=== PATIENT | female | born 1955 | race African-American/Black ===

== ENCOUNTER 2022-05-11 09:08 | Day surgery (SDC) | payer OTHER ==
[2022-05-11] MEDS ORDERED: SODIUM CHLORIDE 250 ML IV ONE (10:00)
[2022-05-11 10:04] LABS: BASO % 0.8 % (0-2.0); EOS % 6.5 % (0-4.5); HEMATOCRIT 41.5 % (32.4-45.2); HEMOGLOBIN 13.3 GM/dL (10.7-15.3); LYMPH % 23.9 % (8-40); MCH 27.3 pg (25.7-33.7); MCHC 32.1 g/dl (32.0-36.0); MEAN CELL VOLUME 85.2 fl (80-96); MONO % 9.1 % (3.8-10.2); NEUT % 59.7 % (42.8-82.8); PLATELET COUNT 251 10^3/uL (134-434); RBC 4.87 M/mm3 (3.60-5.2); RDW 13.8 % (11.6-15.6); WHITE BLOOD COUNT 7.3 K/mm3 (4.0-10.0)
[2022-05-11] MEDS ORDERED: PALONOSETRON HCL 0.25 MG/5 ML VIAL IVPUSH ONE (10:30)
[2022-05-11] MEDS ORDERED: FOSAPREPITANT DIMEGLUMINE 150 MG in SODIUM CHLORIDE 145 ML IVPB ONE (10:30)
[2022-05-11 10:34] LABS: ALBUMIN 3.3 g/dl (3.4-5.0); CALCIUM 9.8 mg/dL (8.5-10.1)
[2022-05-11 10:35] LABS: BLOOD UREA NITROGEN 14.2 mg/dL (7-18)
[2022-05-11 10:37] LABS: BILIRUBIN,DIRECT 0.1 mg/dL (0.0-0.2)
[2022-05-11 10:39] LABS: BILIRUBIN,TOTAL 0.2 mg/dL (0.2-1); TOT PROT 7.2 g/dl (6.4-8.2)
[2022-05-11 10:40] LABS: N-TERMINAL BNP 32.3 pg/ml (5-125)
[2022-05-11] MEDS ORDERED: PEMBROLIZUMAB 200 MG in SODIUM CHLORIDE 100 ML IV ONE (11:00)
[2022-05-11] MEDS ORDERED: SODIUM CHLORIDE IVPB ONE ×2 (11:30→11:45)
[2022-05-11] MEDS ORDERED: PEMETREXED DISODIUM IVPB ONE (11:30)
[2022-05-11] MEDS ORDERED: CARBOPLATIN IVPB ONE (11:45)
[2022-05-11] MEDS ORDERED: MAGNESIUM SULF 50% (8.12 MEQ/2 ML-1 GM VIAL) ONE (11:46)
[2022-05-11 17:02] VITALS: BP 134/71; PULSE 71; RESP 18; TEMP 98.2
[2022-05-11] MEDS ORDERED: PORTA CATH FLUSH 10 ML IVPUSH PRN (17:02)
== END 2022-05-11 14:30 | disposition home or self-care (01) ==
LOC: JONCCHEMO 09:08
PROVIDERS: ATTEND Internal Medicine Hematology & Oncology
DX: Z51.11 Encounter for antineoplastic chemotherapy (principal); C34.90 Malignant neoplasm of unspecified part of unspecified bronchus or lung
CPT/HCPCS: 36415; 80048; 80076; 82150; 82533; 82550; 83690; 83880; 84439; 84443; 84484; 85025; 87086; 96367; 96375; 96411; 96413; 96417; J1453; J2469; J9271; J9305

== ENCOUNTER 2022-06-01 08:38 | Day surgery (SDC) | payer OTHER ==
[2022-06-01 09:15] LABS: URINE APPEARANCE CLEAR; URINE BILIRUBIN NEGATIVE (NEGATIVE); URINE COLOR YELLOW; URINE GLUCOSE (UA) NEGATIVE (NEGATIVE); URINE KETONE TRACE (NEGATIVE); URINE LEUK ESTERASE NEGATIVE (NEGATIVE); URINE NITRITE NEGATIVE (NEGATIVE); URINE PROTEIN NEGATIVE (NEGATIVE); URINE UROBILINOGEN 0.2 mg/dL (0.2-1.0)
[2022-06-01 09:19] LABS: BASO % 0.6 % (0-2.0); HEMATOCRIT 38.9 % (32.4-45.2); MCHC 33.4 g/dl (32.0-36.0); MEAN PLT VOLUME 7.4 fl (7.5-11.1); MONO % 16.2 % (3.8-10.2); NEUT % 47.2 % (42.8-82.8); PLATELET COUNT 457 10^3/uL (134-434); RBC 4.63 M/mm3 (3.60-5.2); RDW 13.7 % (11.6-15.6); WHITE BLOOD COUNT 5.5 K/mm3 (4.0-10.0)
[2022-06-01 09:44] LABS: BLOOD UREA NITROGEN 14.3 mg/dL (7-18); CALCIUM 10.2 mg/dL (8.5-10.1)
[2022-06-01 09:45] LABS: ALBUMIN 3.5 g/dl (3.4-5.0)
[2022-06-01 09:47] LABS: BILIRUBIN,DIRECT 0.1 mg/dL (0.0-0.2); CREATININE 1.1 mg/dL (0.55-1.3)
[2022-06-01 09:48] LABS: BILIRUBIN,TOTAL 0.2 mg/dL (0.2-1)
[2022-06-01 09:49] LABS: TOT PROT 7.8 g/dl (6.4-8.2)
[2022-06-01 09:50] LABS: N-TERMINAL BNP 13.7 pg/ml (5-125)
[2022-06-01] MEDS ORDERED: FOSAPREPITANT DIMEGLUMINE 150 MG in SODIUM CHLORIDE 145 ML IVPB ONE (10:00)
[2022-06-01] MEDS ORDERED: PALONOSETRON HCL 0.25 MG/5 ML VIAL IVPUSH ONE (10:00)
[2022-06-01] MEDS ORDERED: SODIUM CHLORIDE 250 ML IV ONE (10:00)
[2022-06-01] MEDS ORDERED: PEMBROLIZUMAB 200 MG in SODIUM CHLORIDE 100 ML IV ONE (10:30)
[2022-06-01] MEDS ORDERED: PEMETREXED DISODIUM IVPB ONE (11:00)
[2022-06-01] MEDS ORDERED: SODIUM CHLORIDE IVPB ONE ×2 (11:00→11:30)
[2022-06-01] MEDS ORDERED: CARBOPLATIN IVPB ONE (11:30)
[2022-06-01] MEDS ORDERED: PORTA CATH FLUSH 10 ML IVPUSH PRN (15:23)
[2022-06-01 15:24] VITALS: BP 134/83; PULSE 96; RESP 18; TEMP 98
== END 2022-06-01 15:00 | disposition home or self-care (01) ==
LOC: JONCCHEMO 08:38
PROVIDERS: ATTEND Internal Medicine Hematology & Oncology
DX: Z51.11 Encounter for antineoplastic chemotherapy (principal); C34.90 Malignant neoplasm of unspecified part of unspecified bronchus or lung
CPT/HCPCS: 36415; 80048; 80076; 81003; 82150; 82533; 82550; 83690; 83880; 84439; 84443; 84484; 85025; 96367; 96375; 96411; 96413; 96417; J1453; J2469; J9271; J9305

== ENCOUNTER 2022-06-22 08:45 | Day surgery (SDC) | payer OTHER ==
[2022-06-22 09:26] LABS: BASO % 0.3 % (0-2.0); EOS % 1.1 % (0-4.5); HEMATOCRIT 34.3 % (32.4-45.2); HEMOGLOBIN 11.4 GM/dL (10.7-15.3); LYMPH % 31.1 % (8-40); MCHC 33.1 g/dl (32.0-36.0); MEAN CELL VOLUME 84.7 fl (80-96); MEAN PLT VOLUME 7.4 fl (7.5-11.1); MONO % 16.3 % (3.8-10.2); NEUT % 51.2 % (42.8-82.8); PLATELET COUNT 267 10^3/uL (134-434); RBC 4.05 M/mm3 (3.60-5.2); RDW 14.5 % (11.6-15.6); WHITE BLOOD COUNT 5.3 K/mm3 (4.0-10.0)
[2022-06-22 09:28] LABS: EPI CELLS 25 /uL (0-25.1); HYALINE CASTS 1 /uL (0-3.1); PH,URINE 5.5 (5.0-8.0); URINE APPEARANCE CLEAR; URINE BACTERIA 269 /uL (0-1359); URINE BILIRUBIN NEGATIVE (NEGATIVE); URINE COLOR YELLOW; URINE GLUCOSE (UA) NEGATIVE (NEGATIVE); URINE KETONE TRACE (NEGATIVE); URINE LEUK ESTERASE 1+ (NEGATIVE); URINE NITRITE NEGATIVE (NEGATIVE); URINE PROTEIN NEGATIVE (NEGATIVE); URINE RBC 12 /uL (0-23.9); URINE UROBILINOGEN 0.2 mg/dL (0.2-1.0); URINE WBC 38 /uL (0-25.8)
[2022-06-22 09:46] LABS: POTASSIUM 4.6 mmol/L (3.5-5.1)
[2022-06-22 09:49] LABS: ALBUMIN 3.7 g/dl (3.4-5.0); BLOOD UREA NITROGEN 19.1 mg/dL (7-18); CALCIUM 9.5 mg/dL (8.5-10.1)
[2022-06-22 09:51] LABS: BILIRUBIN,DIRECT 0.1 mg/dL (0.0-0.2)
[2022-06-22 09:52] LABS: CREATININE 1.1 mg/dL (0.55-1.3)
[2022-06-22 09:53] LABS: BILIRUBIN,TOTAL 0.2 mg/dL (0.2-1); TOT PROT 7.8 g/dl (6.4-8.2)
[2022-06-22] MEDS ORDERED: SODIUM CHLORIDE 250 ML IV ONE (10:00)
[2022-06-22] MEDS ORDERED: FOSAPREPITANT DIMEGLUMINE 150 MG in SODIUM CHLORIDE 145 ML IVPB ONE (10:00)
[2022-06-22] MEDS ORDERED: PALONOSETRON HCL 0.25 MG/5 ML VIAL IVPUSH ONE (10:00)
[2022-06-22] MEDS ORDERED: PEMBROLIZUMAB 200 MG in SODIUM CHLORIDE 100 ML IV ONE (10:30)
[2022-06-22] MEDS ORDERED: SODIUM CHLORIDE IVPB ONE ×2 (11:00→11:30)
[2022-06-22] MEDS ORDERED: PEMETREXED DISODIUM IVPB ONE (11:00)
[2022-06-22] MEDS ORDERED: CARBOPLATIN IVPB ONE (11:30)
[2022-06-22 17:14] VITALS: BP 129/74; PULSE 74; RESP 20; TEMP 98.4
[2022-06-22] MEDS ORDERED: PORTA CATH FLUSH 10 ML IVPUSH PRN (17:14)
== END 2022-06-22 14:10 | disposition home or self-care (01) ==
LOC: J7W 08:45 → JONCCHEMO 08:45
PROVIDERS: ATTEND Internal Medicine Hematology & Oncology
DX: Z12.11 Encounter for screening for malignant neoplasm of colon (principal)
CPT/HCPCS: 36415; 80048; 80076; 81003; 82150; 82533; 82550; 83690; 83880; 84439; 84443; 84484; 85025; 96375; 96411; 96413; 96417; J1453; J2469; J9271; J9305

== ENCOUNTER 2022-07-13 10:19 | Day surgery (SDC) | payer OTHER ==
[~2022-07-13 10:19] MED LIST: CYANOCOBALAMIN (VITAMIN B-12) 1000 MCG/1 ML VIAL IM ONE; FOSAPREPITANT DIMEGLUMINE 150 MG in SODIUM CHLORIDE 145 ML IVPB ONE; PALONOSETRON HCL 0.25 MG/5 ML VIAL IVPUSH ONE; SODIUM CHLORIDE 250 ML IV ONE
[2022-07-13] MEDS ORDERED: PEMBROLIZUMAB 200 MG in SODIUM CHLORIDE 100 ML IV ONE (10:30)
[2022-07-13] MEDS ORDERED: SODIUM CHLORIDE IVPB ONE (11:00)
[2022-07-13] MEDS ORDERED: PEMETREXED DISODIUM IVPB ONE (11:00)
[2022-07-13 11:38] LABS: BASO % 0.3 % (0-2.0); EOS % 0.8 % (0-4.5); HEMATOCRIT 31.7 % (32.4-45.2); HEMOGLOBIN 10.5 GM/dL (10.7-15.3); LYMPH % 35.8 % (8-40); MCH 28.7 pg (25.7-33.7); MEAN PLT VOLUME 7.6 fl (7.5-11.1); MONO % 14.6 % (3.8-10.2); NEUT % 48.5 % (42.8-82.8); PLATELET COUNT 281 10^3/uL (134-434); RBC 3.65 M/mm3 (3.60-5.2); RDW 16.8 % (11.6-15.6); WHITE BLOOD COUNT 5.6 K/mm3 (4.0-10.0)
[2022-07-13 12:06] LABS: POTASSIUM 4.2 mmol/L (3.5-5.1)
[2022-07-13 12:09] LABS: BLOOD UREA NITROGEN 18.2 mg/dL (7-18); CALCIUM 9.5 mg/dL (8.5-10.1)
[2022-07-13 12:10] LABS: ALBUMIN 3.7 g/dl (3.4-5.0)
[2022-07-13 12:12] LABS: BILIRUBIN,DIRECT 0.1 mg/dL (0.0-0.2)
[2022-07-13 12:14] LABS: BILIRUBIN,TOTAL 0.1 mg/dL (0.2-1)
[2022-07-13 12:15] LABS: N-TERMINAL BNP 42.2 pg/ml (5-125)
[2022-07-13 14:17] LABS: EPI CELLS 13 /uL (0-25.1); HYALINE CASTS 2 /uL (0-3.1); PH,URINE 5.5 (5.0-8.0); URINE APPEARANCE CLEAR; URINE BACTERIA 384 /uL (0-1359); URINE BILIRUBIN NEGATIVE (NEGATIVE); URINE COLOR YELLOW; URINE GLUCOSE (UA) NEGATIVE (NEGATIVE); URINE KETONE TRACE (NEGATIVE); URINE LEUK ESTERASE 1+ (NEGATIVE); URINE NITRITE NEGATIVE (NEGATIVE); URINE PROTEIN NEGATIVE (NEGATIVE); URINE RBC 7 /uL (0-23.9); URINE UROBILINOGEN 0.2 mg/dL (0.2-1.0); URINE WBC 25 /uL (0-25.8)
[2022-07-13 15:00] LABS: YEAST OCCASIONAL (NEGATIVE)
[2022-07-13 15:17] VITALS: BP 135/74; PULSE 84; RESP 20; TEMP 97.8
[2022-07-13] MEDS ORDERED: PORTA CATH FLUSH 10 ML IVPUSH PRN (15:17)
== END 2022-07-13 14:20 | disposition home or self-care (01) ==
LOC: JONCCHEMO 10:19 → J7W 11:25 → JONCCHEMO 14:20
PROVIDERS: ATTEND Internal Medicine Hematology & Oncology
DX: Z51.11 Encounter for antineoplastic chemotherapy (principal); C34.12 Malignant neoplasm of upper lobe, left bronchus or lung
CPT/HCPCS: 36415; 80048; 80076; 81003; 82150; 82533; 82550; 83690; 83880; 84439; 84443; 84484; 85025; 96367; 96413; 96417; J1453; J2469; J9271; J9305

== ENCOUNTER 2022-07-20 12:49 | Inpatient (IN) | payer OTHER ==
[2022-07-20 13:03] VITALS: BMI 39.4
[2022-07-20 15:31] LABS: HEMATOCRIT 27.3 % (32.4-45.2); HEMOGLOBIN 8.9 GM/dL (10.7-15.3); INR 1.24 (0.83-1.09); MCH 28.9 pg (25.7-33.7); MCHC 32.5 g/dl (32.0-36.0); MEAN CELL VOLUME 89.1 fl (80-96); MEAN PLT VOLUME 7.7 fl (7.5-11.1); PLATELET COUNT 173 10^3/uL (134-434); PROTHROMBIN TIME (PATIENT) 14.4 SEC (9.7-13.0); RBC 3.06 M/mm3 (3.60-5.2); RDW 19.9 % (11.6-15.6); WHITE BLOOD COUNT 2.5 K/mm3 (4.0-10.0)
[2022-07-20 15:46] LABS: POTASSIUM 3.9 mmol/L (3.5-5.1)
[2022-07-20 15:50] LABS: BLOOD UREA NITROGEN 15.5 mg/dL (7-18); CALCIUM 8.8 mg/dL (8.5-10.1)
[2022-07-20 15:54] LABS: ANISOCYTOSIS 1+; MACROCYTOSIS 1+
[2022-07-20 15:55] LABS: BILIRUBIN,TOTAL 0.7 mg/dL (0.2-1); TOT PROT 6.8 g/dl (6.4-8.2)
[2022-07-20 15:58] LABS: N-TERMINAL BNP 59.4 pg/ml (5-125)
[2022-07-20 16:00] LABS: ALBUMIN 2.8 g/dl (3.4-5.0)
[2022-07-20 16:20] LABS: EPI CELLS >36 /uL (0-25.1); HYALINE CASTS 2 /uL (0-3.1); PH,URINE 5.5 (5.0-8.0); URINE APPEARANCE CLEAR; URINE BACTERIA 766 /uL (0-1359); URINE BILIRUBIN NEGATIVE (NEGATIVE); URINE COLOR YELLOW; URINE GLUCOSE (UA) NEGATIVE (NEGATIVE); URINE KETONE NEGATIVE (NEGATIVE); URINE LEUK ESTERASE 2+ (NEGATIVE); URINE NITRITE NEGATIVE (NEGATIVE); URINE PROTEIN TRACE (NEGATIVE); URINE RBC 17 /uL (0-23.9); URINE WBC 136 /uL (0-25.8)
[2022-07-20] MEDS ORDERED: PIPERACILLIN/TAZOB 3.375 GM 3.375 GM in DEXTROSE 5%-WATER - 50 ML IVPB ONE (17:44)
[2022-07-20] MEDS ORDERED: PIPERACILLIN/TAZOB 3.375 GM 3.375 GM/50 ML BAG IVPB ONE (17:52)
[2022-07-20 20:07] LABS: YEAST MODERATE (NEGATIVE)
[2022-07-20] MEDS ORDERED: ALBUTEROL SO4 HFA INHALER IH PRN (20:30)
[2022-07-20] MEDS: ASPIRIN COATED 81 MG TABLET.EC PO SCH (21:12)
[2022-07-20] MEDS: ATORVASTATIN CA 20 MG TABLET (FP) PO SCH (21:13)
[2022-07-20] MEDS: levETIRAcetam 500 MG TABLET (FP) PO SCH (21:13)
[2022-07-20] MEDS ORDERED: levETIRAcetam 500 MG TABLET (FP) PO ONE (21:14)
[2022-07-20] MEDS ORDERED: ASPIRIN 81 MG CHEWABLE TABLETS ONE (21:14)
[2022-07-20] MEDS ORDERED: ATORVASTATIN CA 20 MG TABLET (FP) ONE (21:14)
[2022-07-20] MEDS: INSULIN SLIDING SCALE (NOVOLOG) 1 VIAL SQ SCH (21:23)
[2022-07-21] MEDS ORDERED: VANCOMYCIN/WATER 1,250 MG/250 ML BAG (RESTRICTED TO ID ONLY) IVPB ONE (02:44)
[2022-07-21] MEDS: SODIUM CHLORIDE 1,000 ML IV SCH ×2 (02:54→21:55)
[2022-07-21] MEDS: PIPERACILLIN/TAZOB 3.375 GM 3.375 GM in DEXTROSE 5%-WATER - 50 ML IVPB SCH ×4 (02:55→12:48)
[2022-07-21] MEDS ORDERED: VANCOMYCIN/WATER 1250 MG 1,250 MG/250 ML BAG IVPB ONE (04:00)
[2022-07-21] MEDS: INSULIN SLIDING SCALE (NOVOLOG) 1 VIAL SQ SCH ×5 (06:47→21:54)
[2022-07-21 08:55] LABS: HEMATOCRIT 24.3 % (32.4-45.2); HEMOGLOBIN 8.1 GM/dL (10.7-15.3); MCH 29.3 pg (25.7-33.7); MCHC 33.3 g/dl (32.0-36.0); MEAN PLT VOLUME 7.1 fl (7.5-11.1); PLATELET COUNT 132 10^3/uL (134-434); RBC 2.76 M/mm3 (3.60-5.2); RDW 19.6 % (11.6-15.6); WHITE BLOOD COUNT 3.2 K/mm3 (4.0-10.0)
[2022-07-21 09:14] LABS: POTASSIUM 4.1 mmol/L (3.5-5.1)
[2022-07-21 09:22] LABS: ALBUMIN 2.5 g/dl (3.4-5.0); BLOOD UREA NITROGEN 12.8 mg/dL (7-18); CALCIUM 8.7 mg/dL (8.5-10.1)
[2022-07-21 09:27] LABS: BILIRUBIN,TOTAL 0.7 mg/dL (0.2-1); TOT PROT 6.4 g/dl (6.4-8.2)
[2022-07-21] MEDS ORDERED: FUROSEMIDE 20 MG TABLET (FP) PO SCH (10:00)
[2022-07-21] MEDS: ENOXAPARIN NA (PORCINE) 40 MG/0.4 ML DISP.SYRIN SQ SCH (10:01)
[2022-07-21] MEDS: ASPIRIN COATED 81 MG TABLET.EC PO SCH (10:02)
[2022-07-21] MEDS: levETIRAcetam 500 MG TABLET (FP) PO SCH ×2 (10:02→21:54)
[2022-07-21] MEDS ORDERED: INSULIN (NOVOLOG) ASPART 100 UNITS/ML 10ML VIAL ONE ×2 (12:59→21:50)
[2022-07-21] MEDS: VANCOMYCIN/WATER 1250 MG 1,250 MG/250 ML BAG IVPB SCH (16:05)
[2022-07-21] MEDS: CEFEPIME 2 GM in DEXTROSE 5%-WATER 100 ML IVPB SCH (18:05)
[2022-07-21] MEDS: TBO-FILGRASTIM 480 MCG/0.8 ML DISP.SYRIN SQ SCH (19:13)
[2022-07-21] MEDS: ATORVASTATIN CA 20 MG TABLET (FP) PO SCH (21:54)
[2022-07-21] MEDS: BUDESONIDE/FORMETEROL FUMARATE 160/4.5 mcg INHALER IH SCH (21:54)
[2022-07-22] MEDS: CEFEPIME 2 GM in DEXTROSE 5%-WATER 100 ML IVPB SCH ×3 (01:19→18:49)
[2022-07-22] MEDS: VANCOMYCIN/WATER 1250 MG 1,250 MG/250 ML BAG IVPB SCH ×2 (05:28→16:37)
[2022-07-22] MEDS: INSULIN SLIDING SCALE (NOVOLOG) 1 VIAL SQ SCH ×4 (06:09→22:59)
[2022-07-22] MEDS: levETIRAcetam 500 MG TABLET (FP) PO SCH ×2 (09:51→22:58)
[2022-07-22] MEDS: FUROSEMIDE 40 MG TABLET (FP) PO SCH (09:51)
[2022-07-22] MEDS: ENOXAPARIN NA (PORCINE) 40 MG/0.4 ML DISP.SYRIN SQ SCH (09:51)
[2022-07-22] MEDS: ASPIRIN COATED 81 MG TABLET.EC PO SCH (09:51)
[2022-07-22] MEDS: BUDESONIDE/FORMETEROL FUMARATE 160/4.5 mcg INHALER IH SCH ×2 (09:57→22:59)
[2022-07-22] MEDS ORDERED: oxyCODONE HCL 5 MG TABLET PO PRN (10:55)
[2022-07-22 11:17] LABS: HEMATOCRIT 26.6 % (32.4-45.2); HEMOGLOBIN 8.6 GM/dL (10.7-15.3); MCH 29.6 pg (25.7-33.7); MCHC 32.5 g/dl (32.0-36.0); MEAN CELL VOLUME 91.2 fl (80-96); PLATELET COUNT 117 10^3/uL (134-434); RBC 2.92 M/mm3 (3.60-5.2); WHITE BLOOD COUNT 6.8 K/mm3 (4.0-10.0)
[2022-07-22 11:38] LABS: POTASSIUM 4.8 mmol/L (3.5-5.1)
[2022-07-22 11:46] LABS: CALCIUM 8.9 mg/dL (8.5-10.1)
[2022-07-22 11:47] LABS: ALBUMIN 2.4 g/dl (3.4-5.0); BLOOD UREA NITROGEN 11.4 mg/dL (7-18); MAGNESIUM 2.1 mg/dL (1.8-2.4)
[2022-07-22 11:50] LABS: CREATININE 0.9 mg/dL (0.55-1.3)
[2022-07-22 11:51] LABS: BILIRUBIN,TOTAL 0.6 mg/dL (0.2-1)
[2022-07-22 11:52] LABS: TOT PROT 6.5 g/dl (6.4-8.2)
[2022-07-22] MEDS: TBO-FILGRASTIM 480 MCG/0.8 ML DISP.SYRIN SQ SCH (13:09)
[2022-07-22 14:11] LABS: ANISOCYTOSIS 0; MACROCYTOSIS 0; OVALOCYTE 1+
[2022-07-22] MEDS: ATORVASTATIN CA 20 MG TABLET (FP) PO SCH (22:59)
[2022-07-22] MEDS: DOCUSATE SODIUM 100 MG CAPSULE (FP) PO SCH (22:59)
[2022-07-23] MEDS: CEFEPIME 2 GM in DEXTROSE 5%-WATER 100 ML IVPB SCH ×3 (01:16→18:20)
[2022-07-23] MEDS: VANCOMYCIN/WATER 1250 MG 1,250 MG/250 ML BAG IVPB SCH ×2 (03:43→17:45)
[2022-07-23] MEDS: INSULIN SLIDING SCALE (NOVOLOG) 1 VIAL SQ SCH ×4 (06:58→23:49)
[2022-07-23 09:25] LABS: HEMATOCRIT 24.1 % (32.4-45.2); HEMOGLOBIN 7.8 GM/dL (10.7-15.3); MCH 28.5 pg (25.7-33.7); MCHC 32.4 g/dl (32.0-36.0); MEAN CELL VOLUME 88.2 fl (80-96); MEAN PLT VOLUME 7.9 fl (7.5-11.1); PLATELET COUNT 99 10^3/uL (134-434); RBC 2.73 M/mm3 (3.60-5.2); RDW 20.6 % (11.6-15.6); WHITE BLOOD COUNT 13.9 K/mm3 (4.0-10.0)
[2022-07-23 09:57] LABS: CALCIUM 8.6 mg/dL (8.5-10.1)
[2022-07-23 09:58] LABS: ALBUMIN 2.3 g/dl (3.4-5.0); BLOOD UREA NITROGEN 11.5 mg/dL (7-18); MAGNESIUM 1.9 mg/dL (1.8-2.4)
[2022-07-23 10:00] LABS: CREATININE 0.9 mg/dL (0.55-1.3)
[2022-07-23 10:02] LABS: BILIRUBIN,TOTAL 0.7 mg/dL (0.2-1); TOT PROT 6.2 g/dl (6.4-8.2)
[2022-07-23] MEDS: FUROSEMIDE 40 MG TABLET (FP) PO SCH (10:10)
[2022-07-23] MEDS: levETIRAcetam 500 MG TABLET (FP) PO SCH ×2 (10:10→23:00)
[2022-07-23] MEDS: ASPIRIN COATED 81 MG TABLET.EC PO SCH (10:10)
[2022-07-23] MEDS: ENOXAPARIN NA (PORCINE) 40 MG/0.4 ML DISP.SYRIN SQ SCH (10:10)
[2022-07-23 10:29] LABS: ANISOCYTOSIS 0; MACROCYTOSIS 0
[2022-07-23] MEDS: TBO-FILGRASTIM 480 MCG/0.8 ML DISP.SYRIN SQ SCH (11:19)
[2022-07-23] MEDS: BUDESONIDE/FORMETEROL FUMARATE 160/4.5 mcg INHALER IH SCH ×2 (11:20→23:00)
[2022-07-23] MEDS ORDERED: oxyCODONE HCL 5 MG TABLET PO PRN (12:04)
[2022-07-23] MEDS: ATORVASTATIN CA 20 MG TABLET (FP) PO SCH (23:00)
[2022-07-23] MEDS: DOCUSATE SODIUM 100 MG CAPSULE (FP) PO SCH (23:00)
[2022-07-23] MEDS: oxyCODONE HCL 5 MG TABLET PO PRN (23:39)
[2022-07-24] MEDS: CEFEPIME 2 GM in DEXTROSE 5%-WATER 100 ML IVPB SCH ×3 (02:59→17:08)
[2022-07-24] MEDS: INSULIN SLIDING SCALE (NOVOLOG) 1 VIAL SQ SCH ×4 (06:53→22:51)
[2022-07-24] MEDS: ENOXAPARIN NA (PORCINE) 40 MG/0.4 ML DISP.SYRIN SQ SCH (09:17)
[2022-07-24] MEDS: ASPIRIN COATED 81 MG TABLET.EC PO SCH (09:17)
[2022-07-24] MEDS: levETIRAcetam 500 MG TABLET (FP) PO SCH ×2 (09:17→22:34)
[2022-07-24] MEDS: FUROSEMIDE 40 MG TABLET (FP) PO SCH (09:17)
[2022-07-24 09:31] LABS: HEMATOCRIT 24.8 % (32.4-45.2); HEMOGLOBIN 8.1 GM/dL (10.7-15.3); MCHC 32.5 g/dl (32.0-36.0); MEAN PLT VOLUME 8.3 fl (7.5-11.1); PLATELET COUNT 96 10^3/uL (134-434); RBC 2.79 M/mm3 (3.60-5.2); RDW 20.8 % (11.6-15.6); WHITE BLOOD COUNT 29.6 K/mm3 (4.0-10.0)
[2022-07-24 09:59] LABS: ALBUMIN 2.2 g/dl (3.4-5.0); MAGNESIUM 1.8 mg/dL (1.8-2.4)
[2022-07-24 10:02] LABS: CREATININE 0.9 mg/dL (0.55-1.3)
[2022-07-24 10:03] LABS: BILIRUBIN,TOTAL 0.4 mg/dL (0.2-1)
[2022-07-24 10:04] LABS: TOT PROT 6.2 g/dl (6.4-8.2)
[2022-07-24] MEDS: BUDESONIDE/FORMETEROL FUMARATE 160/4.5 mcg INHALER IH SCH ×2 (10:14→22:47)
[2022-07-24] MEDS: VANCOMYCIN/WATER 1250 MG 1,250 MG/250 ML BAG IVPB SCH (10:14)
[2022-07-24 12:02] LABS: ANISOCYTOSIS 0; MACROCYTOSIS 0
[2022-07-24] MEDS: TBO-FILGRASTIM 480 MCG/0.8 ML DISP.SYRIN SQ SCH (13:43)
[2022-07-24] MEDS: oxyCODONE HCL 5 MG TABLET PO PRN ×2 (17:14→22:33)
[2022-07-24] MEDS: DOCUSATE SODIUM 100 MG CAPSULE (FP) PO SCH (22:34)
[2022-07-24] MEDS: ATORVASTATIN CA 20 MG TABLET (FP) PO SCH (22:35)
[2022-07-25] MEDS: CEFEPIME 2 GM in DEXTROSE 5%-WATER 100 ML IVPB SCH ×3 (01:32→17:12)
[2022-07-25] MEDS: INSULIN SLIDING SCALE (NOVOLOG) 1 VIAL SQ SCH ×4 (06:15→23:24)
[2022-07-25] MEDS ORDERED: GABAPENTIN 100 MG CAPSULE PO SCH (09:20)
[2022-07-25] MEDS: oxyCODONE HCL 5 MG TABLET PO PRN (09:22)
[2022-07-25] MEDS: FUROSEMIDE 40 MG TABLET (FP) PO SCH (09:22)
[2022-07-25] MEDS: ASPIRIN COATED 81 MG TABLET.EC PO SCH (09:22)
[2022-07-25] MEDS: levETIRAcetam 500 MG TABLET (FP) PO SCH ×2 (09:25→23:22)
[2022-07-25] MEDS ORDERED: INSULIN (NOVOLOG) ASPART 100 UNITS/ML 10ML VIAL ONE (11:03)
[2022-07-25] MEDS: VANCOMYCIN/WATER 1250 MG 1,250 MG/250 ML BAG IVPB SCH (11:05)
[2022-07-25] MEDS: ENOXAPARIN NA (PORCINE) 40 MG/0.4 ML DISP.SYRIN SQ SCH (11:06)
[2022-07-25] MEDS: BUDESONIDE/FORMETEROL FUMARATE 160/4.5 mcg INHALER IH SCH ×2 (11:08→23:24)
[2022-07-25] MEDS: GABAPENTIN 100 MG CAPSULE PO SCH ×2 (13:38→23:23)
[2022-07-25] MEDS: DOCUSATE SODIUM 100 MG CAPSULE (FP) PO SCH (23:21)
[2022-07-25] MEDS: ATORVASTATIN CA 20 MG TABLET (FP) PO SCH (23:23)
[2022-07-26] MEDS: CEFEPIME 2 GM in DEXTROSE 5%-WATER 100 ML IVPB SCH ×3 (02:31→17:52)
[2022-07-26] MEDS: GABAPENTIN 100 MG CAPSULE PO SCH ×3 (07:37→22:58)
[2022-07-26] MEDS: INSULIN SLIDING SCALE (NOVOLOG) 1 VIAL SQ SCH ×4 (07:38→22:53)
[2022-07-26] MEDS: levETIRAcetam 500 MG TABLET (FP) PO SCH ×2 (09:10→22:58)
[2022-07-26] MEDS: BUDESONIDE/FORMETEROL FUMARATE 160/4.5 mcg INHALER IH SCH ×2 (09:11→22:58)
[2022-07-26] MEDS: ENOXAPARIN NA (PORCINE) 40 MG/0.4 ML DISP.SYRIN SQ SCH (09:11)
[2022-07-26] MEDS: ASPIRIN COATED 81 MG TABLET.EC PO SCH (09:11)
[2022-07-26] MEDS: FUROSEMIDE 40 MG TABLET (FP) PO SCH (09:11)
[2022-07-26] MEDS: VANCOMYCIN/WATER 1250 MG 1,250 MG/250 ML BAG IVPB SCH (09:53)
[2022-07-26] MEDS ORDERED: INSULIN (NOVOLOG) ASPART 100 UNITS/ML 10ML VIAL ONE (11:41)
[2022-07-26] MEDS: ATORVASTATIN CA 20 MG TABLET (FP) PO SCH (22:58)
[2022-07-26] MEDS: DOCUSATE SODIUM 100 MG CAPSULE (FP) PO SCH (22:58)
[2022-07-27] MEDS: CEFEPIME 2 GM in DEXTROSE 5%-WATER 100 ML IVPB SCH ×3 (02:36→16:59)
[2022-07-27] MEDS: INSULIN SLIDING SCALE (NOVOLOG) 1 VIAL SQ SCH ×4 (07:25→22:45)
[2022-07-27] MEDS: GABAPENTIN 100 MG CAPSULE PO SCH ×2 (07:26→13:21)
[2022-07-27 09:17] LABS: POTASSIUM 3.8 mmol/L (3.5-5.1)
[2022-07-27 09:20] LABS: HEMATOCRIT 24.8 % (32.4-45.2); HEMOGLOBIN 7.9 GM/dL (10.7-15.3); MCH 28.7 pg (25.7-33.7); MCHC 31.9 g/dl (32.0-36.0); MEAN CELL VOLUME 89.8 fl (80-96); MEAN PLT VOLUME 9.3 fl (7.5-11.1); PLATELET COUNT 143 10^3/uL (134-434); RBC 2.76 M/mm3 (3.60-5.2); RDW 20.9 % (11.6-15.6); WHITE BLOOD COUNT 17.8 K/mm3 (4.0-10.0)
[2022-07-27 09:22] LABS: CALCIUM 9.3 mg/dL (8.5-10.1)
[2022-07-27 09:23] LABS: ALBUMIN 2.5 g/dl (3.4-5.0); BLOOD UREA NITROGEN 16.7 mg/dL (7-18); MAGNESIUM 2.1 mg/dL (1.8-2.4)
[2022-07-27 09:26] LABS: CREATININE 0.8 mg/dL (0.55-1.3)
[2022-07-27 09:28] LABS: BILIRUBIN,TOTAL 0.3 mg/dL (0.2-1); TOT PROT 6.6 g/dl (6.4-8.2)
[2022-07-27] MEDS: FUROSEMIDE 40 MG TABLET (FP) PO SCH (09:45)
[2022-07-27] MEDS: ENOXAPARIN NA (PORCINE) 40 MG/0.4 ML DISP.SYRIN SQ SCH (09:45)
[2022-07-27] MEDS: levETIRAcetam 500 MG TABLET (FP) PO SCH ×2 (09:45→22:44)
[2022-07-27] MEDS: ASPIRIN COATED 81 MG TABLET.EC PO SCH (09:45)
[2022-07-27] MEDS: BUDESONIDE/FORMETEROL FUMARATE 160/4.5 mcg INHALER IH SCH ×2 (09:45→22:45)
[2022-07-27 09:59] LABS: ANISOCYTOSIS 1+; MACROCYTOSIS 1+
[2022-07-27] MEDS ORDERED: INSULIN (NOVOLOG) ASPART 100 UNITS/ML 10ML VIAL ONE ×2 (12:06→16:49)
[2022-07-27] MEDS: PORTA CATH FLUSH 10 ML IVPUSH PRN (12:16)
[2022-07-27] MEDS: MINERAL OIL/PET HY-PHL TOPICAL OINTMENT 454 GM JAR TP SCH (13:21)
[2022-07-27] MEDS: DOCUSATE SODIUM 100 MG CAPSULE (FP) PO SCH (22:43)
[2022-07-27] MEDS: ATORVASTATIN CA 20 MG TABLET (FP) PO SCH (22:44)
[2022-07-27] MEDS: GABAPENTIN 300 MG CAPSULE PO SCH (22:44)
[2022-07-28] MEDS ORDERED: CEFEPIME HCL 2 GM VIAL (RESTRICTED TO ID) ONE (03:11)
[2022-07-28] MEDS: CEFEPIME 2 GM in DEXTROSE 5%-WATER 100 ML IVPB SCH ×3 (03:33→17:36)
[2022-07-28] MEDS: INSULIN SLIDING SCALE (NOVOLOG) 1 VIAL SQ SCH ×4 (06:27→21:57)
[2022-07-28] MEDS: GABAPENTIN 300 MG CAPSULE PO SCH ×3 (06:27→21:37)
[2022-07-28 09:31] LABS: HEMATOCRIT 24.1 % (32.4-45.2); HEMOGLOBIN 7.8 GM/dL (10.7-15.3); MCHC 32.4 g/dl (32.0-36.0); MEAN CELL VOLUME 89.6 fl (80-96); MEAN PLT VOLUME 9.2 fl (7.5-11.1); PLATELET COUNT 177 10^3/uL (134-434); RBC 2.69 M/mm3 (3.60-5.2); RDW 20.4 % (11.6-15.6); WHITE BLOOD COUNT 16.2 K/mm3 (4.0-10.0)
[2022-07-28] MEDS: levETIRAcetam 500 MG TABLET (FP) PO SCH ×2 (09:41→21:36)
[2022-07-28] MEDS: ENOXAPARIN NA (PORCINE) 40 MG/0.4 ML DISP.SYRIN SQ SCH (09:41)
[2022-07-28] MEDS: ASPIRIN COATED 81 MG TABLET.EC PO SCH (09:41)
[2022-07-28] MEDS: FUROSEMIDE 40 MG TABLET (FP) PO SCH (09:41)
[2022-07-28] MEDS: MINERAL OIL/PET HY-PHL TOPICAL OINTMENT 454 GM JAR TP SCH (09:41)
[2022-07-28] MEDS: ACETAMINOPHEN 325 MG TABLET (FP) PO PRN (09:42)
[2022-07-28] MEDS: PORTA CATH FLUSH 10 ML IVPUSH PRN (09:42)
[2022-07-28] MEDS: BUDESONIDE/FORMETEROL FUMARATE 160/4.5 mcg INHALER IH SCH ×2 (09:42→21:37)
[2022-07-28 09:52] LABS: POTASSIUM 4.2 mmol/L (3.5-5.1)
[2022-07-28 09:58] LABS: CALCIUM 9.3 mg/dL (8.5-10.1)
[2022-07-28 09:59] LABS: ALBUMIN 2.4 g/dl (3.4-5.0); BLOOD UREA NITROGEN 16.1 mg/dL (7-18)
[2022-07-28 10:02] LABS: CREATININE 0.8 mg/dL (0.55-1.3)
[2022-07-28 10:03] LABS: BILIRUBIN,TOTAL 0.3 mg/dL (0.2-1)
[2022-07-28 10:04] LABS: TOT PROT 6.6 g/dl (6.4-8.2)
[2022-07-28 10:39] LABS: ANISOCYTOSIS 3+; MACROCYTOSIS 0
[2022-07-28] MEDS ORDERED: INSULIN (NOVOLOG) ASPART 100 UNITS/ML 10ML VIAL ONE (17:29)
[2022-07-28] MEDS: DOCUSATE SODIUM 100 MG CAPSULE (FP) PO SCH (21:37)
[2022-07-28] MEDS: ATORVASTATIN CA 20 MG TABLET (FP) PO SCH (21:37)
[2022-07-29] MEDS: CEFEPIME 2 GM in DEXTROSE 5%-WATER 100 ML IVPB SCH ×2 (01:44→09:34)
[2022-07-29] MEDS: GABAPENTIN 300 MG CAPSULE PO SCH ×3 (05:43→22:20)
[2022-07-29] MEDS: INSULIN SLIDING SCALE (NOVOLOG) 1 VIAL SQ SCH ×4 (06:13→22:23)
[2022-07-29 08:53] LABS: HEMOGLOBIN 8.1 GM/dL (10.7-15.3); MCH 28.9 pg (25.7-33.7); MCHC 32.3 g/dl (32.0-36.0); MEAN CELL VOLUME 89.4 fl (80-96); MEAN PLT VOLUME 8.6 fl (7.5-11.1); PLATELET COUNT 225 10^3/uL (134-434); RDW 20.5 % (11.6-15.6); WHITE BLOOD COUNT 15.1 K/mm3 (4.0-10.0)
[2022-07-29 09:12] LABS: POTASSIUM 4.3 mmol/L (3.5-5.1)
[2022-07-29 09:15] LABS: ALBUMIN 2.4 g/dl (3.4-5.0)
[2022-07-29 09:17] LABS: CALCIUM 9.1 mg/dL (8.5-10.1); MAGNESIUM 2.3 mg/dL (1.8-2.4)
[2022-07-29 09:18] LABS: CREATININE 0.8 mg/dL (0.55-1.3)
[2022-07-29 09:20] LABS: BILIRUBIN,TOTAL 0.2 mg/dL (0.2-1); TOT PROT 6.7 g/dl (6.4-8.2)
[2022-07-29 09:22] LABS: BLOOD UREA NITROGEN 19.5 mg/dL (7-18)
[2022-07-29] MEDS: ENOXAPARIN NA (PORCINE) 40 MG/0.4 ML DISP.SYRIN SQ SCH (09:35)
[2022-07-29] MEDS: ASPIRIN COATED 81 MG TABLET.EC PO SCH (09:35)
[2022-07-29] MEDS: FUROSEMIDE 40 MG TABLET (FP) PO SCH (09:35)
[2022-07-29] MEDS: levETIRAcetam 500 MG TABLET (FP) PO SCH ×2 (09:35→22:20)
[2022-07-29] MEDS: MINERAL OIL/PET HY-PHL TOPICAL OINTMENT 454 GM JAR TP SCH (09:36)
[2022-07-29] MEDS: BUDESONIDE/FORMETEROL FUMARATE 160/4.5 mcg INHALER IH SCH ×2 (09:40→22:24)
[2022-07-29 10:46] LABS: ANISOCYTOSIS 1+; MACROCYTOSIS 0
[2022-07-29] MEDS: ACETAMINOPHEN 325 MG TABLET (FP) PO PRN (10:46)
[2022-07-29] MEDS ORDERED: INSULIN (NOVOLOG) ASPART 100 UNITS/ML 10ML VIAL ONE ×2 (16:41→22:50)
[2022-07-29] MEDS: AMOX TR/POT CLAV 875MG/125MG TABLETS (FP) PO SCH (17:02)
[2022-07-29] MEDS: DOCUSATE SODIUM 100 MG CAPSULE (FP) PO SCH (22:20)
[2022-07-29] MEDS: ATORVASTATIN CA 20 MG TABLET (FP) PO SCH (22:21)
[2022-07-30] MEDS: GABAPENTIN 300 MG CAPSULE PO SCH ×3 (05:50→22:06)
[2022-07-30] MEDS: INSULIN SLIDING SCALE (NOVOLOG) 1 VIAL SQ SCH ×4 (06:16→22:15)
[2022-07-30] MEDS: levETIRAcetam 500 MG TABLET (FP) PO SCH ×2 (09:05→22:06)
[2022-07-30] MEDS: ASPIRIN COATED 81 MG TABLET.EC PO SCH (09:06)
[2022-07-30] MEDS: FUROSEMIDE 40 MG TABLET (FP) PO SCH (09:06)
[2022-07-30] MEDS: AMOX TR/POT CLAV 875MG/125MG TABLETS (FP) PO SCH (09:06)
[2022-07-30] MEDS: ENOXAPARIN NA (PORCINE) 40 MG/0.4 ML DISP.SYRIN SQ SCH (09:06)
[2022-07-30] MEDS: BUDESONIDE/FORMETEROL FUMARATE 160/4.5 mcg INHALER IH SCH ×2 (09:07→22:15)
[2022-07-30] MEDS: MINERAL OIL/PET HY-PHL TOPICAL OINTMENT 454 GM JAR TP SCH (09:07)
[2022-07-30] MEDS ORDERED: INSULIN (NOVOLOG) ASPART 100 UNITS/ML 10ML VIAL ONE (11:52)
[2022-07-30] MEDS: CEFTRIAXONE 2 GM in DEXTROSE 5%-WATER - 50 ML IVPB SCH (12:00)
[2022-07-30] MEDS: ACETAMINOPHEN 325 MG TABLET (FP) PO PRN (13:08)
[2022-07-30] MEDS: DOCUSATE SODIUM 100 MG CAPSULE (FP) PO SCH (22:06)
[2022-07-30] MEDS: ATORVASTATIN CA 20 MG TABLET (FP) PO SCH (22:06)
[2022-07-31] MEDS: GABAPENTIN 300 MG CAPSULE PO SCH ×3 (06:41→22:57)
[2022-07-31] MEDS: INSULIN SLIDING SCALE (NOVOLOG) 1 VIAL SQ SCH ×4 (06:47→22:56)
[2022-07-31] MEDS: ENOXAPARIN NA (PORCINE) 40 MG/0.4 ML DISP.SYRIN SQ SCH (09:51)
[2022-07-31] MEDS: CEFTRIAXONE 2 GM in DEXTROSE 5%-WATER - 50 ML IVPB SCH (09:51)
[2022-07-31] MEDS: levETIRAcetam 500 MG TABLET (FP) PO SCH ×2 (09:52→22:56)
[2022-07-31] MEDS: FUROSEMIDE 40 MG TABLET (FP) PO SCH (09:53)
[2022-07-31] MEDS: ASPIRIN COATED 81 MG TABLET.EC PO SCH (09:53)
[2022-07-31] MEDS: BUDESONIDE/FORMETEROL FUMARATE 160/4.5 mcg INHALER IH SCH ×2 (09:54→22:59)
[2022-07-31] MEDS: MINERAL OIL/PET HY-PHL TOPICAL OINTMENT 454 GM JAR TP SCH (09:54)
[2022-07-31] MEDS: METHYL SALICYLATE/MENTHOL OINT 30 GM TUBE TP SCH (13:30)
[2022-07-31] MEDS ORDERED: INSULIN (NOVOLOG) ASPART 100 UNITS/ML 10ML VIAL ONE (21:40)
[2022-07-31] MEDS: DOCUSATE SODIUM 100 MG CAPSULE (FP) PO SCH (22:56)
[2022-07-31] MEDS: ATORVASTATIN CA 20 MG TABLET (FP) PO SCH (22:57)
[2022-08-01] MEDS: GABAPENTIN 300 MG CAPSULE PO SCH ×3 (05:41→21:43)
[2022-08-01] MEDS: INSULIN SLIDING SCALE (NOVOLOG) 1 VIAL SQ SCH ×4 (06:08→21:53)
[2022-08-01 08:41] LABS: BASO % 0.5 % (0-2.0); EOS % 1.2 % (0-4.5); HEMATOCRIT 26.1 % (32.4-45.2); HEMOGLOBIN 8.5 GM/dL (10.7-15.3); LYMPH % 18.5 % (8-40); MCH 29.4 pg (25.7-33.7); MCHC 32.7 g/dl (32.0-36.0); MEAN CELL VOLUME 90.1 fl (80-96); MEAN PLT VOLUME 7.9 fl (7.5-11.1); MONO % 13.9 % (3.8-10.2); NEUT % 65.9 % (42.8-82.8); PLATELET COUNT 406 10^3/uL (134-434); RDW 21.2 % (11.6-15.6); WHITE BLOOD COUNT 9.7 K/mm3 (4.0-10.0)
[2022-08-01 08:56] LABS: POTASSIUM 4.6 mmol/L (3.5-5.1)
[2022-08-01 09:17] LABS: BLOOD UREA NITROGEN 22.8 mg/dL (7-18); CALCIUM 9.8 mg/dL (8.5-10.1); MAGNESIUM 2.3 mg/dL (1.8-2.4)
[2022-08-01 09:18] LABS: ALBUMIN 2.7 g/dl (3.4-5.0)
[2022-08-01 09:21] LABS: CREATININE 0.8 mg/dL (0.55-1.3)
[2022-08-01 09:22] LABS: BILIRUBIN,TOTAL 0.5 mg/dL (0.2-1); TOT PROT 7.3 g/dl (6.4-8.2)
[2022-08-01] MEDS: ENOXAPARIN NA (PORCINE) 40 MG/0.4 ML DISP.SYRIN SQ SCH (09:54)
[2022-08-01] MEDS: CEFTRIAXONE 2 GM in DEXTROSE 5%-WATER - 50 ML IVPB SCH (09:55)
[2022-08-01] MEDS: ASPIRIN COATED 81 MG TABLET.EC PO SCH (09:58)
[2022-08-01] MEDS: BUDESONIDE/FORMETEROL FUMARATE 160/4.5 mcg INHALER IH SCH ×2 (09:58→21:44)
[2022-08-01] MEDS: FUROSEMIDE 40 MG TABLET (FP) PO SCH (09:58)
[2022-08-01] MEDS: METHYL SALICYLATE/MENTHOL OINT 30 GM TUBE TP SCH (09:58)
[2022-08-01] MEDS: levETIRAcetam 500 MG TABLET (FP) PO SCH ×2 (09:58→21:43)
[2022-08-01] MEDS: MINERAL OIL/PET HY-PHL TOPICAL OINTMENT 454 GM JAR TP SCH (09:58)
[2022-08-01 10:23] LABS: ANISOCYTOSIS 2+; MACROCYTOSIS 2+
[2022-08-01] MEDS: DOCUSATE SODIUM 100 MG CAPSULE (FP) PO SCH (21:43)
[2022-08-01] MEDS: ATORVASTATIN CA 20 MG TABLET (FP) PO SCH (21:43)
[2022-08-01 22:53] VITALS: RESP 18; TEMP 98.2
[2022-08-02] MEDS: GABAPENTIN 300 MG CAPSULE PO SCH (05:50)
[2022-08-02] MEDS: INSULIN SLIDING SCALE (NOVOLOG) 1 VIAL SQ SCH ×2 (06:21→13:27)
[2022-08-02 09:04] LABS: BASO % 0.9 % (0-2.0); EOS % 1.4 % (0-4.5); HEMATOCRIT 25.2 % (32.4-45.2); HEMOGLOBIN 8.3 GM/dL (10.7-15.3); LYMPH % 18.7 % (8-40); MCH 29.5 pg (25.7-33.7); MCHC 32.7 g/dl (32.0-36.0); MEAN CELL VOLUME 90.2 fl (80-96); MONO % 12.3 % (3.8-10.2); NEUT % 66.7 % (42.8-82.8); PLATELET COUNT 440 10^3/uL (134-434); RBC 2.79 M/mm3 (3.60-5.2); RDW 20.9 % (11.6-15.6); WHITE BLOOD COUNT 8.3 K/mm3 (4.0-10.0)
[2022-08-02 09:34] LABS: POTASSIUM 4.7 mmol/L (3.5-5.1)
[2022-08-02 09:39] LABS: CALCIUM 9.6 mg/dL (8.5-10.1)
[2022-08-02 09:40] LABS: ALBUMIN 2.7 g/dl (3.4-5.0); BLOOD UREA NITROGEN 21.5 mg/dL (7-18); MAGNESIUM 2.2 mg/dL (1.8-2.4)
[2022-08-02 09:43] LABS: CREATININE 0.9 mg/dL (0.55-1.3)
[2022-08-02 09:45] LABS: BILIRUBIN,TOTAL 0.4 mg/dL (0.2-1)
[2022-08-02] MEDS: CEFTRIAXONE 2 GM in DEXTROSE 5%-WATER - 50 ML IVPB SCH ×2 (09:50→11:41)
[2022-08-02] MEDS: ASPIRIN COATED 81 MG TABLET.EC PO SCH (09:50)
[2022-08-02] MEDS: levETIRAcetam 500 MG TABLET (FP) PO SCH (09:50)
[2022-08-02] MEDS: METHYL SALICYLATE/MENTHOL OINT 30 GM TUBE TP SCH (09:51)
[2022-08-02] MEDS: FUROSEMIDE 40 MG TABLET (FP) PO SCH (09:51)
[2022-08-02] MEDS: ENOXAPARIN NA (PORCINE) 40 MG/0.4 ML DISP.SYRIN SQ SCH (09:51)
[2022-08-02] MEDS: BUDESONIDE/FORMETEROL FUMARATE 160/4.5 mcg INHALER IH SCH (09:52)
[2022-08-02] MEDS: MINERAL OIL/PET HY-PHL TOPICAL OINTMENT 454 GM JAR TP SCH (09:52)
[2022-08-02] MEDS ORDERED: AMOX TR/POT CLAV 875MG/125MG TABLETS (FP) PO SCH (11:18)
[2022-08-02] MEDS ORDERED: SODIUM CHLORIDE 250 ML IV STA (12:27)
[2022-08-02 13:40] VITALS: BP 134/74; PULSE 82
== END 2022-08-02 13:30 | DRG 603 ==
LOC: JER 12:49 → JERBED 17:51 → OBSVTOIN 20:21 → J8W 07-21 00:58
PROVIDERS: ADMIT Internal Medicine; ATTEND Nurse Practitioner Family
DX: L03.115 Cellulitis of right lower limb (principal); C34.12 Malignant neoplasm of upper lobe, left bronchus or lung; I10 Essential (primary) hypertension; E11.9 Type 2 diabetes mellitus without complications; E66.9 Obesity, unspecified; Z68.38 Body mass index [BMI] 38.0-38.9, adult; R56.9 Unspecified convulsions; M25.571 Pain in right ankle and joints of right foot; D70.9 Neutropenia, unspecified; D64.9 Anemia, unspecified; E78.5 Hyperlipidemia, unspecified
CPT/HCPCS: 36415; 71046-TC-FY; 73610-TC-RT-FY; 73700-TC-RT; 80053; 81003; 82962; 83036; 83735; 83880; 85025; 85027; 85610; 86140; 86850; 86900; 86901; 87040; 87081; 87086; 87635; 93005; 93010; 93971-TC; 97116-GP; 97161-GP; 99285-25; G0378; G0480; J1447

== ENCOUNTER 2022-11-13 15:05 | Inpatient (IN) | payer OTHER ==
[2022-11-13 17:03] LABS: BASO % 1.3 % (0-2.0); EOS % 2.5 % (0-4.5); HEMATOCRIT 34.8 % (32.4-45.2); HEMOGLOBIN 11.5 GM/dL (10.7-15.3); LYMPH % 22.8 % (8-40); MCH 29.3 pg (25.7-33.7); MCHC 33.1 g/dl (32.0-36.0); MEAN CELL VOLUME 88.3 fl (80-96); MEAN PLT VOLUME 7.3 fl (7.5-11.1); MONO % 12.8 % (3.8-10.2); NEUT % 60.6 % (42.8-82.8); PLATELET COUNT 328 10^3/uL (134-434); RBC 3.95 M/mm3 (3.60-5.2); RDW 14.5 % (11.6-15.6); WHITE BLOOD COUNT 6.8 K/mm3 (4.0-10.0)
[2022-11-13 17:23] LABS: POTASSIUM 4.3 mmol/L (3.5-5.1)
[2022-11-13 17:24] LABS: CALCIUM 9.1 mg/dL (8.5-10.1)
[2022-11-13 17:25] LABS: ALBUMIN 3.3 g/dl (3.4-5.0); BLOOD UREA NITROGEN 25.7 mg/dL (7-18)
[2022-11-13 17:28] LABS: CREATININE 1.1 mg/dL (0.55-1.3)
[2022-11-13 17:30] LABS: BILIRUBIN,TOTAL 0.1 mg/dL (0.2-1); TOT PROT 7.4 g/dl (6.4-8.2)
[2022-11-13] MEDS ORDERED: VANCOMYCIN 1,000 MG in DEXTROSE 5%-WATER - 250 ML IVPB ONE (20:14)
[2022-11-13] MEDS ORDERED: CEFEPIME HCL 1 GM VIAL (RESTRICTED TO ID) IVPB ONE (20:14)
[2022-11-13] MEDS ORDERED: CEFEPIME 1 GM/100 ML BAG IVPB ONE (20:28)
[2022-11-13] MEDS ORDERED: VANCOMYCIN 1 GRAM (PRE-DOCKED) 1,000 MG/250 ML BAG IVPB ONE (22:06)
[2022-11-14] MEDS ORDERED: PORTA CATH FLUSH 10 ML IVPUSH PRN (00:11)
[2022-11-14] MEDS ORDERED: ALBUTEROL SO4 HFA INHALER IH PRN (00:11)
[2022-11-14] MEDS ORDERED: levETIRAcetam 500 MG TABLET (FP) PO ONE (00:45)
[2022-11-14] MEDS: levETIRAcetam 250 MG TABLET PO SCH ×3 (00:50→22:11)
[2022-11-14] MEDS ORDERED: ACETAMINOPHEN 325 MG TABLET (FP) PO PRN (00:55)
[2022-11-14] MEDS ORDERED: VANCOMYCIN/WATER 1250 MG 1,250 MG/250 ML BAG IVPB SCH (01:15)
[2022-11-14] MEDS ORDERED: SODIUM CHLORIDE 1,000 ML IV SCH (01:45)
[2022-11-14 02:43] VITALS: BMI 43.0
[2022-11-14] MEDS ORDERED: VANCOMYCIN 1,000 MG in DEXTROSE 5%-WATER - 250 ML IVPB SCH (03:30)
[2022-11-14] MEDS: GABAPENTIN 300 MG CAPSULE PO SCH ×3 (05:18→22:11)
[2022-11-14] MEDS: INSULIN SLIDING SCALE (NOVOLOG) 1 VIAL SQ SCH ×2 (06:02→11:33)
[2022-11-14 08:35] LABS: HEMATOCRIT 36.9 % (32.4-45.2); HEMOGLOBIN 11.9 GM/dL (10.7-15.3); MCHC 32.3 g/dl (32.0-36.0); MEAN CELL VOLUME 89.8 fl (80-96); MEAN PLT VOLUME 7.8 fl (7.5-11.1); PLATELET COUNT 333 10^3/uL (134-434); RBC 4.11 M/mm3 (3.60-5.2); RDW 14.1 % (11.6-15.6)
[2022-11-14 08:55] LABS: POTASSIUM 4.5 mmol/L (3.5-5.1)
[2022-11-14 08:57] LABS: CALCIUM 8.8 mg/dL (8.5-10.1)
[2022-11-14 08:58] LABS: BLOOD UREA NITROGEN 18.5 mg/dL (7-18)
[2022-11-14] MEDS ORDERED: CEFEPIME 2 GM in DEXTROSE 5%-WATER 100 ML IVPB SCH (09:00)
[2022-11-14 09:01] LABS: PHOSPHOROUS 3.2 mg/dL (2.5-4.9)
[2022-11-14 09:03] LABS: BILIRUBIN,TOTAL 0.2 mg/dL (0.2-1)
[2022-11-14] MEDS: ENOXAPARIN NA (PORCINE) 40 MG/0.4 ML DISP.SYRIN SQ SCH ×2 (09:45→22:12)
[2022-11-14] MEDS: CEFEPIME 2 GM in DEXTROSE 5%-WATER 100 ML IVPB SCH ×2 (09:45→22:06)
[2022-11-14] MEDS: ASPIRIN COATED 81 MG TABLET.EC PO SCH (09:46)
[2022-11-14] MEDS: VANCOMYCIN/WATER FOR INJ (PEG) 1,000 MG/200 ML BAG IVPB SCH ×2 (09:46→22:12)
[2022-11-14] MEDS: FUROSEMIDE 20 MG TABLET (FP) PO SCH (09:46)
[2022-11-14] MEDS ORDERED: CEFEPIME HCL 2 GM VIAL (RESTRICTED TO ID) IVPB SCH (10:00)
[2022-11-14] MEDS: ATORVASTATIN CA 20 MG TABLET (FP) PO SCH (22:12)
[2022-11-14] MEDS: FLUTICASONE/UMECLIDIN/VILANTER(200-62.5-25 TRELEGY ELLIPTA) INAHLER IH SCH (22:13)
[2022-11-14 22:15] VITALS: RESP 18
[2022-11-15] MEDS: CEFEPIME 1 GM in DEXTROSE 5%-WATER 100 ML IVPB SCH ×3 (04:00→19:00)
[2022-11-15] MEDS: GABAPENTIN 300 MG CAPSULE PO SCH ×3 (05:15→22:55)
[2022-11-15] MEDS: levETIRAcetam 250 MG TABLET PO SCH ×2 (10:18→22:55)
[2022-11-15] MEDS: ENOXAPARIN NA (PORCINE) 40 MG/0.4 ML DISP.SYRIN SQ SCH ×2 (10:19→22:55)
[2022-11-15] MEDS: ASPIRIN COATED 81 MG TABLET.EC PO SCH (10:19)
[2022-11-15] MEDS: FLUTICASONE/UMECLIDIN/VILANTER(200-62.5-25 TRELEGY ELLIPTA) INAHLER IH SCH (10:20)
[2022-11-15] MEDS: FUROSEMIDE 20 MG TABLET (FP) PO SCH (10:22)
[2022-11-15] MEDS: VANCOMYCIN/WATER FOR INJ (PEG) 1,000 MG/200 ML BAG IVPB SCH ×2 (11:35→22:14)
[2022-11-15 19:17] LABS: BASO % 1.1 % (0-2.0); EOS % 2.8 % (0-4.5); HEMATOCRIT 35.4 % (32.4-45.2); HEMOGLOBIN 11.7 GM/dL (10.7-15.3); LYMPH % 26.1 % (8-40); MCH 29.2 pg (25.7-33.7); MCHC 33.1 g/dl (32.0-36.0); MEAN CELL VOLUME 88.2 fl (80-96); MEAN PLT VOLUME 7.4 fl (7.5-11.1); MONO % 13.8 % (3.8-10.2); NEUT % 56.2 % (42.8-82.8); PLATELET COUNT 376 10^3/uL (134-434); RBC 4.01 M/mm3 (3.60-5.2); RDW 14.3 % (11.6-15.6); WHITE BLOOD COUNT 5.8 K/mm3 (4.0-10.0)
[2022-11-15 19:36] LABS: POTASSIUM 4.3 mmol/L (3.5-5.1)
[2022-11-15 19:38] LABS: BLOOD UREA NITROGEN 19.4 mg/dL (7-18); CALCIUM 8.8 mg/dL (8.5-10.1)
[2022-11-15 19:41] LABS: CREATININE 1.1 mg/dL (0.55-1.3); URIC ACID 7.6 mg/dL (2.6-7.2)
[2022-11-15] MEDS: ATORVASTATIN CA 20 MG TABLET (FP) PO SCH (22:55)
[2022-11-16] MEDS: CEFEPIME 1 GM in DEXTROSE 5%-WATER 100 ML IVPB SCH ×2 (01:45→11:05)
[2022-11-16] MEDS: GABAPENTIN 300 MG CAPSULE PO SCH ×3 (06:19→21:46)
[2022-11-16] MEDS: FUROSEMIDE 20 MG TABLET (FP) PO SCH (11:06)
[2022-11-16] MEDS: ASPIRIN COATED 81 MG TABLET.EC PO SCH (11:06)
[2022-11-16] MEDS: ENOXAPARIN NA (PORCINE) 40 MG/0.4 ML DISP.SYRIN SQ SCH ×2 (11:06→21:47)
[2022-11-16] MEDS: levETIRAcetam 250 MG TABLET PO SCH ×2 (11:06→21:45)
[2022-11-16] MEDS: FLUTICASONE/UMECLIDIN/VILANTER(200-62.5-25 TRELEGY ELLIPTA) INAHLER IH SCH (11:07)
[2022-11-16] MEDS: CEFTRIAXONE 2 GM in DEXTROSE 5%-WATER 100 ML IVPB SCH (18:07)
[2022-11-16] MEDS: ATORVASTATIN CA 20 MG TABLET (FP) PO SCH (21:46)
[2022-11-17] MEDS: GABAPENTIN 300 MG CAPSULE PO SCH ×3 (05:24→22:35)
[2022-11-17 09:40] LABS: BASO % 0.9 % (0-2.0); EOS % 3.1 % (0-4.5); HEMATOCRIT 37.6 % (32.4-45.2); HEMOGLOBIN 11.9 GM/dL (10.7-15.3); LYMPH % 28.9 % (8-40); MCH 28.6 pg (25.7-33.7); MCHC 31.8 g/dl (32.0-36.0); MEAN PLT VOLUME 7.4 fl (7.5-11.1); NEUT % 55.1 % (42.8-82.8); PLATELET COUNT 366 10^3/uL (134-434); RBC 4.17 M/mm3 (3.60-5.2); RDW 14.3 % (11.6-15.6)
[2022-11-17 09:58] LABS: POTASSIUM 4.5 mmol/L (3.5-5.1)
[2022-11-17 10:04] LABS: ALBUMIN 2.9 g/dl (3.4-5.0)
[2022-11-17 10:10] LABS: BILIRUBIN,TOTAL 0.4 mg/dL (0.2-1)
[2022-11-17] MEDS: CEFTRIAXONE 2 GM in DEXTROSE 5%-WATER 100 ML IVPB SCH (10:22)
[2022-11-17] MEDS: FUROSEMIDE 20 MG TABLET (FP) PO SCH (10:23)
[2022-11-17] MEDS: ENOXAPARIN NA (PORCINE) 40 MG/0.4 ML DISP.SYRIN SQ SCH ×2 (10:23→22:34)
[2022-11-17] MEDS: levETIRAcetam 250 MG TABLET PO SCH ×2 (10:23→22:35)
[2022-11-17] MEDS: ASPIRIN COATED 81 MG TABLET.EC PO SCH (10:23)
[2022-11-17] MEDS: FLUTICASONE/UMECLIDIN/VILANTER(200-62.5-25 TRELEGY ELLIPTA) INAHLER IH SCH (10:24)
[2022-11-17] MEDS: ATORVASTATIN CA 20 MG TABLET (FP) PO SCH (22:35)
[2022-11-18] MEDS: GABAPENTIN 300 MG CAPSULE PO SCH ×3 (05:56→21:07)
[2022-11-18] MEDS: levETIRAcetam 250 MG TABLET PO SCH ×2 (10:23→21:07)
[2022-11-18] MEDS: ASPIRIN COATED 81 MG TABLET.EC PO SCH (10:24)
[2022-11-18] MEDS: CEFTRIAXONE 2 GM in DEXTROSE 5%-WATER 100 ML IVPB SCH ×2 (10:24→10:35)
[2022-11-18] MEDS: ENOXAPARIN NA (PORCINE) 40 MG/0.4 ML DISP.SYRIN SQ SCH ×2 (10:24→21:07)
[2022-11-18] MEDS: FUROSEMIDE 20 MG TABLET (FP) PO SCH (10:24)
[2022-11-18] MEDS: FLUTICASONE/UMECLIDIN/VILANTER(200-62.5-25 TRELEGY ELLIPTA) INAHLER IH SCH (10:24)
[2022-11-18] MEDS: CEPHALEXIN MONOHYDRATE 500 MG CAPSULE (UD) PO SCH ×2 (10:57→21:07)
[2022-11-18 11:24] LABS: BASO % 0.9 % (0-2.0); EOS % 3.5 % (0-4.5); HEMATOCRIT 36.1 % (32.4-45.2); HEMOGLOBIN 12.4 GM/dL (10.7-15.3); LYMPH % 27.7 % (8-40); MCHC 34.3 g/dl (32.0-36.0); MEAN CELL VOLUME 87.5 fl (80-96); MEAN PLT VOLUME 7.5 fl (7.5-11.1); MONO % 14.8 % (3.8-10.2); NEUT % 53.1 % (42.8-82.8); PLATELET COUNT 340 10^3/uL (134-434); RBC 4.13 M/mm3 (3.60-5.2); RDW 14.7 % (11.6-15.6); WHITE BLOOD COUNT 5.7 K/mm3 (4.0-10.0)
[2022-11-18 11:58] LABS: POTASSIUM 4.3 mmol/L (3.5-5.1)
[2022-11-18 12:06] LABS: BLOOD UREA NITROGEN 17.8 mg/dL (7-18)
[2022-11-18 12:08] LABS: CREATININE 0.9 mg/dL (0.55-1.3)
[2022-11-18 12:09] LABS: BILIRUBIN,TOTAL 0.2 mg/dL (0.2-1)
[2022-11-18 12:38] LABS: ALBUMIN 3.1 g/dl (3.4-5.0); CALCIUM 9.4 mg/dL (8.5-10.1)
[2022-11-18] MEDS: ATORVASTATIN CA 20 MG TABLET (FP) PO SCH (21:07)
[2022-11-19] MEDS: GABAPENTIN 300 MG CAPSULE PO SCH ×2 (05:30→15:23)
[2022-11-19 10:25] LABS: EOS % 3.3 % (0-4.5); HEMATOCRIT 35.8 % (32.4-45.2); HEMOGLOBIN 11.7 GM/dL (10.7-15.3); MCH 29.2 pg (25.7-33.7); MCHC 32.7 g/dl (32.0-36.0); MEAN CELL VOLUME 89.2 fl (80-96); MEAN PLT VOLUME 7.6 fl (7.5-11.1); MONO % 14.2 % (3.8-10.2); NEUT % 47.5 % (42.8-82.8); PLATELET COUNT 328 10^3/uL (134-434); RBC 4.01 M/mm3 (3.60-5.2); RDW 14.4 % (11.6-15.6); WHITE BLOOD COUNT 5.7 K/mm3 (4.0-10.0)
[2022-11-19 10:48] LABS: BLOOD UREA NITROGEN 20.4 mg/dL (7-18); CALCIUM 9.2 mg/dL (8.5-10.1)
[2022-11-19 10:52] LABS: BILIRUBIN,TOTAL 0.2 mg/dL (0.2-1)
[2022-11-19] MEDS: levETIRAcetam 250 MG TABLET PO SCH (11:16)
[2022-11-19] MEDS: FUROSEMIDE 20 MG TABLET (FP) PO SCH (11:17)
[2022-11-19] MEDS: ENOXAPARIN NA (PORCINE) 40 MG/0.4 ML DISP.SYRIN SQ SCH (11:17)
[2022-11-19] MEDS: ASPIRIN COATED 81 MG TABLET.EC PO SCH (11:17)
[2022-11-19] MEDS: CEPHALEXIN MONOHYDRATE 500 MG CAPSULE (UD) PO SCH (11:17)
[2022-11-19] MEDS: FLUTICASONE/UMECLIDIN/VILANTER(200-62.5-25 TRELEGY ELLIPTA) INAHLER IH SCH (11:18)
[2022-11-19 15:08] VITALS: BP 123/78; PULSE 73; TEMP 98.9
== END 2022-11-19 17:12 | disposition home or self-care (01) | DRG 603 ==
LOC: JER 15:05 → JERBED 23:02 → J5S 11-14 01:25
PROVIDERS: ADMIT Internal Medicine
DX: L03.116 Cellulitis of left lower limb (principal); C34.90 Malignant neoplasm of unspecified part of unspecified bronchus or lung; Z68.41 Body mass index [BMI] 40.0-44.9, adult; D72.819 Decreased white blood cell count, unspecified; D64.9 Anemia, unspecified; E78.5 Hyperlipidemia, unspecified; I10 Essential (primary) hypertension; R56.9 Unspecified convulsions; R73.03 Prediabetes; E66.9 Obesity, unspecified
CPT/HCPCS: 36415; 80048; 80053; 82962; 83735; 84100; 84550; 85025; 85027; 87040; 87081; 87186; 93005; 93010; 93971-TC; 97116-GP; 97162-GP; 99285-25; G0480

== ENCOUNTER 2022-12-07 07:45 | Day surgery (SDC) | payer OTHER ==
[2022-12-07] MEDS ORDERED: SODIUM CHLORIDE 250 ML IV ONE (09:00)
[2022-12-07 09:29] LABS: EPI CELLS 20 /uL (0-25.1); HYALINE CASTS 0 /uL (0-3.1); URINE APPEARANCE CLEAR; URINE BACTERIA 71 /uL (0-1359); URINE BILIRUBIN NEGATIVE (NEGATIVE); URINE COLOR YELLOW; URINE GLUCOSE (UA) NEGATIVE (NEGATIVE); URINE KETONE NEGATIVE (NEGATIVE); URINE LEUK ESTERASE 3+ (NEGATIVE); URINE NITRITE NEGATIVE (NEGATIVE); URINE PROTEIN NEGATIVE (NEGATIVE); URINE RBC 3 /uL (0-23.9); URINE UROBILINOGEN 0.2 mg/dL (0.2-1.0); URINE WBC 150 /uL (0-25.8)
[2022-12-07] MEDS ORDERED: PALONOSETRON HCL 0.25 MG/5 ML VIAL IVPUSH ONE (09:30)
[2022-12-07] MEDS ORDERED: CYANOCOBALAMIN (VITAMIN B-12) 1000 MCG/1 ML VIAL IM ONE (09:30)
[2022-12-07] MEDS ORDERED: FOSAPREPITANT DIMEGLUMINE 150 MG in SODIUM CHLORIDE 145 ML IVPB ONE (09:30)
[2022-12-07 09:35] LABS: BASO % 0.7 % (0-2.0); EOS % 3.8 % (0-4.5); HEMATOCRIT 39.4 % (32.4-45.2); HEMOGLOBIN 12.7 GM/dL (10.7-15.3); LYMPH % 28.3 % (8-40); MCH 28.6 pg (25.7-33.7); MCHC 32.1 g/dl (32.0-36.0); MEAN CELL VOLUME 88.9 fl (80-96); MEAN PLT VOLUME 7.7 fl (7.5-11.1); NEUT % 56.2 % (42.8-82.8); PLATELET COUNT 275 10^3/uL (134-434); RBC 4.44 M/mm3 (3.60-5.2); RDW 14.8 % (11.6-15.6); WHITE BLOOD COUNT 6.2 K/mm3 (4.0-10.0)
[2022-12-07] MEDS ORDERED: PEMBROLIZUMAB 200 MG in SODIUM CHLORIDE 100 ML IV ONE (10:00)
[2022-12-07 10:02] LABS: CHLORIDE 107 mmol/L (98-107); POTASSIUM 4.3 mmol/L (3.5-5.1); SODIUM 139 mmol/L (136-145)
[2022-12-07 10:04] LABS: CALCIUM 9.7 mg/dL (8.5-10.1)
[2022-12-07 10:05] LABS: ALBUMIN 3.8 g/dl (3.4-5.0); ANION GAP 5 mmol/L (4-13); CO2 26 mmol/L (21-32); GLUCOSE,RANDOM 98 mg/dL (74-106); LIPASE 153 U/L (73-393)
[2022-12-07 10:06] LABS: AMYLASE 84 U/L (25-115); BILIRUBIN,DIRECT 0.1 mg/dL (0.0-0.2); SGPT/ALT 21 U/L (13-61)
[2022-12-07 10:08] LABS: CREATININE 1.2 mg/dL (0.55-1.3); SGOT/AST 18 U/L (15-37)
[2022-12-07 10:09] LABS: TOT PROT 8.2 g/dl (6.4-8.2)
[2022-12-07 10:10] LABS: ALK PHOS 134 U/L (45-117)
[2022-12-07 10:11] LABS: N-TERMINAL BNP 33.2 pg/ml (5-125)
[2022-12-07 10:14] LABS: BILIRUBIN,TOTAL 0.3 mg/dL (0.2-1)
[2022-12-07] MEDS ORDERED: PEMETREXED DISODIUM IVPB ONE (10:30)
[2022-12-07] MEDS ORDERED: SODIUM CHLORIDE IVPB ONE (10:30)
[2022-12-07 17:29] VITALS: RESP 18; TEMP 98.3
[2022-12-07 17:41] VITALS: BP 137/72; PULSE 72
[2022-12-07] MEDS ORDERED: PORTA CATH FLUSH 10 ML IVPUSH PRN (17:41)
== END 2022-12-07 13:35 | disposition home or self-care (01) ==
LOC: JONCCHEMO 07:45 → J7W 07:45 → JONCCHEMO 13:35
PROVIDERS: ATTEND Internal Medicine Hematology & Oncology
PROC: 3E04305 Introduction of Other Antineoplastic into Central Vein, Percutaneous Approach (ICD-10-PCS; principal; 2022-12-07)
PROC: 3E0337Z Introduction of Electrolytic and Water Balance Substance into Peripheral Vein, Percutaneous Approach (ICD-10-PCS; 2022-12-07)
PROC: 3E013GC Introduction of Other Therapeutic Substance into Subcutaneous Tissue, Percutaneous Approach (ICD-10-PCS; 2022-12-07)
DX: Z51.11 Encounter for antineoplastic chemotherapy (principal); C34.12 Malignant neoplasm of upper lobe, left bronchus or lung
CPT/HCPCS: 36415; 80048; 80076; 81003; 82150; 82533; 82550; 82553; 83690; 83880; 84439; 84443; 84484; 85025; 87086; 96367; 96372; 96375; 96411; 96413; J1453; J2469; J9271; J9305

== ENCOUNTER 2023-01-11 08:16 | Day surgery (SDC) | payer OTHER ==
[~2023-01-11 08:16] MED LIST changes: +PEMBROLIZUMAB 200 MG in SODIUM CHLORIDE 100 ML IV ONE; +PEMETREXED DISODIUM IVPB ONE; +SODIUM CHLORIDE IVPB ONE
[2023-01-11] MEDS ORDERED: SODIUM CHLORIDE 250 ML IV ONE (09:30)
[2023-01-11] MEDS ORDERED: FOSAPREPITANT DIMEGLUMINE 150 MG in SODIUM CHLORIDE 145 ML IVPB ONE (10:00)
[2023-01-11] MEDS ORDERED: PALONOSETRON HCL 0.25 MG/5 ML VIAL IVPUSH ONE (10:00)
[2023-01-11] MEDS ORDERED: CYANOCOBALAMIN (VITAMIN B-12) 1000 MCG/1 ML VIAL IM ONE (10:00)
[2023-01-11 10:09] LABS: BASO % 0.6 % (0-2.0); EOS % 2.3 % (0-4.5); HEMATOCRIT 37.8 % (32.4-45.2); HEMOGLOBIN 12.1 GM/dL (10.7-15.3); MCH 28.4 pg (25.7-33.7); MCHC 32.1 g/dl (32.0-36.0); MEAN CELL VOLUME 88.7 fl (80-96); MONO % 12.7 % (3.8-10.2); NEUT % 59.4 % (42.8-82.8); PLATELET COUNT 230 10^3/uL (134-434); RBC 4.26 M/mm3 (3.60-5.2); RDW 16.5 % (11.6-15.6); WHITE BLOOD COUNT 7.7 K/mm3 (4.0-10.0)
[2023-01-11 10:10] LABS: EPI CELLS 35 /uL (0-25.1); HYALINE CASTS 1 /uL (0-3.1); URINE APPEARANCE CLOUDY; URINE BACTERIA 194 /uL (0-1359); URINE BILIRUBIN NEGATIVE (NEGATIVE); URINE COLOR YELLOW; URINE GLUCOSE (UA) NEGATIVE (NEGATIVE); URINE KETONE NEGATIVE (NEGATIVE); URINE LEUK ESTERASE 3+ (NEGATIVE); URINE NITRITE NEGATIVE (NEGATIVE); URINE PROTEIN TRACE (NEGATIVE); URINE RBC 24 /uL (0-23.9); URINE UROBILINOGEN 0.2 mg/dL (0.2-1.0); URINE WBC 955 /uL (0-25.8)
[2023-01-11] MEDS ORDERED: ALTEPLASE (CATHFLO) 2 MG/2 ML VIAL CVP ONE (10:15)
[2023-01-11] MEDS ORDERED: PEMBROLIZUMAB 200 MG in SODIUM CHLORIDE 100 ML IV ONE (10:30)
[2023-01-11 10:35] LABS: CALCIUM 9.7 mg/dL (8.5-10.1)
[2023-01-11 10:36] LABS: ALBUMIN 3.6 g/dl (3.4-5.0); BLOOD UREA NITROGEN 21.5 mg/dL (7-18)
[2023-01-11 10:38] LABS: BILIRUBIN,DIRECT 0.1 mg/dL (0.0-0.2); CREATININE 1.2 mg/dL (0.55-1.3); N-TERMINAL BNP 21.6 pg/ml (5-125)
[2023-01-11 10:40] LABS: BILIRUBIN,TOTAL 0.3 mg/dL (0.2-1); TOT PROT 8.5 g/dl (6.4-8.2)
[2023-01-11 15:02] VITALS: BP 148/74; PULSE 78; RESP 18; TEMP 98
[2023-01-11] MEDS ORDERED: PORTA CATH FLUSH 10 ML IVPUSH PRN (15:02)
== END 2023-01-11 13:25 | disposition home or self-care (01) ==
LOC: JONCCHEMO 08:16 → J7W 08:45 → JONCCHEMO 13:25
PROVIDERS: ATTEND Internal Medicine Hematology & Oncology
DX: Z51.11 Encounter for antineoplastic chemotherapy (principal); C34.12 Malignant neoplasm of upper lobe, left bronchus or lung
CPT/HCPCS: 36415; 80048; 80076; 81003; 82150; 82533; 82550; 82553; 83690; 83880; 84439; 84443; 84484; 85025; 96413; J2997; J9271

== ENCOUNTER 2023-02-01 09:00 | Day surgery (SDC) | payer OTHER ==
[2023-02-01] MEDS ORDERED: SODIUM CHLORIDE 250 ML IV ONE (09:30)
[2023-02-01 09:42] LABS: BASO % 0.5 % (0-2.0); EOS % 3.3 % (0-4.5); HEMATOCRIT 32.6 % (32.4-45.2); HEMOGLOBIN 10.7 GM/dL (10.7-15.3); MCH 28.1 pg (25.7-33.7); MCHC 32.7 g/dl (32.0-36.0); MEAN CELL VOLUME 86.1 fl (80-96); MEAN PLT VOLUME 7.6 fl (7.5-11.1); MONO % 10.2 % (3.8-10.2); PLATELET COUNT 360 10^3/uL (134-434); RBC 3.79 M/mm3 (3.60-5.2); RDW 16.2 % (11.6-15.6); WHITE BLOOD COUNT 8.7 K/mm3 (4.0-10.0)
[2023-02-01] MEDS ORDERED: PEMBROLIZUMAB 200 MG in SODIUM CHLORIDE 100 ML IV ONE (10:00)
[2023-02-01 10:12] LABS: BLOOD UREA NITROGEN 12.8 mg/dL (7-18); CALCIUM 9.5 mg/dL (8.5-10.1)
[2023-02-01 10:14] LABS: BILIRUBIN,DIRECT 0.1 mg/dL (0.0-0.2)
[2023-02-01 10:16] LABS: BILIRUBIN,TOTAL 0.3 mg/dL (0.2-1); TOT PROT 7.7 g/dl (6.4-8.2)
[2023-02-01 10:18] LABS: URINE APPEARANCE TURBID; URINE BILIRUBIN NEGATIVE (NEGATIVE); URINE COLOR YELLOW; URINE GLUCOSE (UA) NEGATIVE (NEGATIVE); URINE KETONE NEGATIVE (NEGATIVE)
[2023-02-01 10:19] LABS: PH,URINE 5.5 (5.0-8.0); URINE LEUK ESTERASE 4+ (NEGATIVE); URINE NITRITE NEGATIVE (NEGATIVE); URINE PROTEIN 1+ (NEGATIVE)
[2023-02-01 10:20] LABS: N-TERMINAL BNP 22.5 pg/ml (5-125)
[2023-02-01 10:41] LABS: EPI CELLS FEW /uL (0-25.1); URINE BACTERIA FEW /uL (0-1359); URINE WBC 100-200 /uL (0-25.8)
[2023-02-01] MEDS ORDERED: PORTA CATH FLUSH 10 ML IVPUSH PRN (14:24)
[2023-02-01 16:12] VITALS: BP 136/79; PULSE 88; RESP 18; TEMP 98.3
== END 2023-02-01 12:40 | disposition home or self-care (01) ==
LOC: JONCCHEMO 09:00 → J7W 09:44 → JONCCHEMO 12:40
PROVIDERS: ATTEND Internal Medicine Hematology & Oncology
DX: Z51.11 Encounter for antineoplastic chemotherapy (principal); C34.12 Malignant neoplasm of upper lobe, left bronchus or lung
CPT/HCPCS: 36415; 80048; 80076; 81003; 82150; 82533; 82550; 83690; 83880; 84439; 84443; 84484; 85025; 87086; 96413; J9271

== ENCOUNTER 2023-03-15 08:41 | Day surgery (SDC) | payer OTHER ==
[2023-03-15] MEDS: SODIUM CHLORIDE 250 ML IV ONE (09:32)
[2023-03-15 09:47] LABS: EPI CELLS 20 /uL (0-25.1); HYALINE CASTS 0 /uL (0-3.1); PH,URINE 5.5 (5.0-8.0); URINE APPEARANCE CLEAR; URINE BACTERIA 12 /uL (0-1359); URINE BILIRUBIN NEGATIVE (NEGATIVE); URINE COLOR YELLOW; URINE GLUCOSE (UA) NEGATIVE (NEGATIVE); URINE KETONE NEGATIVE (NEGATIVE); URINE LEUK ESTERASE 2+ (NEGATIVE); URINE NITRITE NEGATIVE (NEGATIVE); URINE PROTEIN NEGATIVE (NEGATIVE); URINE RBC 18 /uL (0-23.9); URINE UROBILINOGEN 0.2 mg/dL (0.2-1.0); URINE WBC 106 /uL (0-25.8)
[2023-03-15 09:48] LABS: EOS % 3.3 % (0-4.5); HEMATOCRIT 36.6 % (32.4-45.2); HEMOGLOBIN 12.4 GM/dL (10.7-15.3); LYMPH % 28.7 % (8-40); MCH 29.4 pg (25.7-33.7); MCHC 33.8 g/dl (32.0-36.0); MEAN PLT VOLUME 7.7 fl (7.5-11.1); MONO % 10.5 % (3.8-10.2); NEUT % 56.5 % (42.8-82.8); PLATELET COUNT 275 10^3/uL (134-434); RBC 4.21 M/mm3 (3.60-5.2); WHITE BLOOD COUNT 6.2 K/mm3 (4.0-10.0)
[2023-03-15 10:20] LABS: CHLORIDE 107 mmol/L (98-107); POTASSIUM 4.5 mmol/L (3.5-5.1); SODIUM 140 mmol/L (136-145)
[2023-03-15 10:23] LABS: ALBUMIN 3.5 g/dl (3.4-5.0); ANION GAP 5 mmol/L (4-13); BLOOD UREA NITROGEN 29.9 mg/dL (7-18); CALCIUM 9.3 mg/dL (8.5-10.1); CO2 28 mmol/L (21-32); GLUCOSE,RANDOM 85 mg/dL (74-106)
[2023-03-15 10:25] LABS: AMYLASE 97 U/L (25-115)
[2023-03-15 10:26] LABS: BILIRUBIN,DIRECT 0.1 mg/dL (0.0-0.2); CREATININE 1.2 mg/dL (0.55-1.3); SGOT/AST 15 U/L (15-37); SGPT/ALT 20 U/L (13-61)
[2023-03-15 10:29] LABS: ALK PHOS 128 U/L (45-117); BILIRUBIN,TOTAL 0.3 mg/dL (0.2-1); N-TERMINAL BNP 18.3 pg/ml (5-125)
[2023-03-15] MEDS: PEMBROLIZUMAB 200 MG in SODIUM CHLORIDE 100 ML IV ONE (12:09)
[2023-03-15] MEDS: PORTA CATH FLUSH 10 ML IVPUSH PRN (12:45)
[2023-03-15 14:34] VITALS: TEMP 98
[2023-03-15 14:41] VITALS: BP 143/77; PULSE 68; RESP 18
== END 2023-03-15 13:25 | disposition home or self-care (01) ==
LOC: JONCCHEMO 08:41 → J7W 08:43 → JONCCHEMO 13:25
PROVIDERS: ATTEND Internal Medicine Hematology & Oncology
DX: Z51.11 Encounter for antineoplastic chemotherapy (principal); C34.12 Malignant neoplasm of upper lobe, left bronchus or lung
CPT/HCPCS: 36415; 80048; 80076; 81003; 82150; 82533; 82550; 82553; 83690; 83880; 84439; 84443; 84484; 85025; 87086; 96413; J9271

== ENCOUNTER 2023-04-05 08:48 | Day surgery (SDC) | payer OTHER ==
[2023-04-05 09:34] VITALS: RESP 20; TEMP 97.8
[2023-04-05 09:38] LABS: EPI CELLS 9 /uL (0-25.1); HYALINE CASTS 0 /uL (0-3.1); URINE APPEARANCE CLEAR; URINE BACTERIA 13 /uL (0-1359); URINE BILIRUBIN NEGATIVE (NEGATIVE); URINE COLOR YELLOW; URINE GLUCOSE (UA) NEGATIVE (NEGATIVE); URINE KETONE NEGATIVE (NEGATIVE); URINE LEUK ESTERASE 2+ (NEGATIVE); URINE NITRITE NEGATIVE (NEGATIVE); URINE PROTEIN NEGATIVE (NEGATIVE); URINE RBC 9 /uL (0-23.9); URINE UROBILINOGEN 0.2 mg/dL (0.2-1.0); URINE WBC 68 /uL (0-25.8)
[2023-04-05 09:39] LABS: EOS % 4.3 % (0-4.5); HEMATOCRIT 38.7 % (32.4-45.2); HEMOGLOBIN 12.7 GM/dL (10.7-15.3); LYMPH % 29.9 % (8-40); MCH 28.4 pg (25.7-33.7); MCHC 32.8 g/dl (32.0-36.0); MEAN CELL VOLUME 86.7 fl (80-96); MEAN PLT VOLUME 7.9 fl (7.5-11.1); MONO % 9.3 % (3.8-10.2); NEUT % 55.5 % (42.8-82.8); PLATELET COUNT 256 10^3/uL (134-434); RBC 4.46 M/mm3 (3.60-5.2); RDW 15.8 % (11.6-15.6); WHITE BLOOD COUNT 6.8 K/mm3 (4.0-10.0)
[2023-04-05] MEDS: SODIUM CHLORIDE 250 ML IV ONE (09:41)
[2023-04-05 10:01] LABS: CHLORIDE 108 mmol/L (98-107); POTASSIUM 4.6 mmol/L (3.5-5.1); SODIUM 143 mmol/L (136-145)
[2023-04-05 10:04] LABS: ALBUMIN 3.5 g/dl (3.4-5.0); ANION GAP 5 mmol/L (4-13); BLOOD UREA NITROGEN 21.8 mg/dL (7-18); CO2 30 mmol/L (21-32); GLUCOSE,RANDOM 90 mg/dL (74-106)
[2023-04-05 10:05] LABS: AMYLASE 78 U/L (25-115)
[2023-04-05 10:07] LABS: BILIRUBIN,DIRECT < 0.1 mg/dL (0.0-0.2); BILIRUBIN,TOTAL 0.3 mg/dL (0.2-1); CREATININE 1.3 mg/dL (0.55-1.3); SGOT/AST 14 U/L (15-37); SGPT/ALT 21 U/L (13-61)
[2023-04-05 10:09] LABS: TOT PROT 8.1 g/dl (6.4-8.2)
[2023-04-05 10:10] LABS: ALK PHOS 128 U/L (45-117); N-TERMINAL BNP 24.2 pg/ml (5-125)
[2023-04-05] MEDS: PEMBROLIZUMAB 200 MG in SODIUM CHLORIDE 100 ML IV ONE (11:12)
[2023-04-05] MEDS: PORTA CATH FLUSH 10 ML IVPUSH PRN (11:45)
[2023-04-05 11:49] VITALS: BP 137/80; PULSE 60
== END 2023-04-05 12:00 | disposition home or self-care (01) ==
LOC: JONCCHEMO 08:48 → J7W 08:49 → JONCCHEMO 12:00
PROVIDERS: ATTEND Internal Medicine Hematology & Oncology
DX: Z51.11 Encounter for antineoplastic chemotherapy (principal); C34.12 Malignant neoplasm of upper lobe, left bronchus or lung
CPT/HCPCS: 36415; 80048; 80076; 81003; 82150; 82533; 82550; 83690; 83880; 84439; 84443; 84484; 85025; 96413; J9271

== ENCOUNTER 2023-04-26 09:30 | Day surgery (SDC) | payer OTHER ==
[~2023-04-26 09:30] MED LIST changes: -CYANOCOBALAMIN (VITAMIN B-12) 1000 MCG/1 ML VIAL IM ONE; -FOSAPREPITANT DIMEGLUMINE 150 MG in SODIUM CHLORIDE 145 ML IVPB ONE; -PALONOSETRON HCL 0.25 MG/5 ML VIAL IVPUSH ONE; -PEMETREXED DISODIUM IVPB ONE; -SODIUM CHLORIDE IVPB ONE
[2023-04-26] MEDS: SODIUM CHLORIDE 250 ML IV ONE (10:23)
[2023-04-26 10:38] LABS: EPI CELLS >36 /uL (0-25.1); HYALINE CASTS 2 /uL (0-3.1); URINE APPEARANCE TURBID; URINE BACTERIA 2265 /uL (0-1359); URINE BILIRUBIN NEGATIVE (NEGATIVE); URINE COLOR YELLOW; URINE GLUCOSE (UA) NEGATIVE (NEGATIVE); URINE KETONE NEGATIVE (NEGATIVE); URINE LEUK ESTERASE 3+ (NEGATIVE); URINE NITRITE NEGATIVE (NEGATIVE); URINE PROTEIN 1+ (NEGATIVE); URINE UROBILINOGEN 0.2 mg/dL (0.2-1.0); URINE WBC 5681 /uL (0-25.8)
[2023-04-26 11:00] LABS: URINE RBC 83 /uL (0-23.9)
[2023-04-26] MEDS: PEMBROLIZUMAB 200 MG in SODIUM CHLORIDE 100 ML IV ONE (11:02)
[2023-04-26 11:18] LABS: YEAST NONE SEEN (NEGATIVE)
[2023-04-26 11:31] LABS: N-TERMINAL BNP 14.9 pg/ml (5-125)
[2023-04-26] MEDS: PORTA CATH FLUSH 10 ML IVPUSH PRN (11:40)
[2023-04-26 17:47] VITALS: TEMP 98.1
[2023-04-26 17:55] VITALS: BP 140/80; PULSE 74; RESP 18
== END 2023-04-26 11:50 | disposition home or self-care (01) ==
LOC: JONCCHEMO 09:30 → J7W 09:30 → JONCCHEMO 11:50
PROVIDERS: ATTEND Internal Medicine Hematology & Oncology
DX: Z51.11 Encounter for antineoplastic chemotherapy (principal); C34.12 Malignant neoplasm of upper lobe, left bronchus or lung
CPT/HCPCS: 36415; 81003; 82150; 82533; 82550; 83690; 83880; 84439; 84443; 84484; 96413; J9271

== ENCOUNTER 2023-05-17 09:29 | Day surgery (SDC) | payer OTHER ==
[2023-05-17] MEDS: SODIUM CHLORIDE 250 ML IV ONE (10:30)
[2023-05-17 10:45] LABS: BASO % 0.8 % (0-2.0); EOS % 4.4 % (0-4.5); HEMATOCRIT 40.5 % (32.4-45.2); HEMOGLOBIN 12.8 GM/dL (10.7-15.3); LYMPH % 30.2 % (8-40); MCH 27.2 pg (25.7-33.7); MCHC 31.6 g/dl (32.0-36.0); MEAN CELL VOLUME 86.1 fl (80-96); MEAN PLT VOLUME 8.1 fl (7.5-11.1); MONO % 11.6 % (3.8-10.2); PLATELET COUNT 260 10^3/uL (134-434); WHITE BLOOD COUNT 6.9 K/mm3 (4.0-10.0)
[2023-05-17 11:04] LABS: POTASSIUM 4.5 mmol/L (3.5-5.1)
[2023-05-17 11:08] LABS: ALBUMIN 3.7 g/dl (3.4-5.0); BLOOD UREA NITROGEN 24.9 mg/dL (7-18)
[2023-05-17 11:09] LABS: CALCIUM 9.8 mg/dL (8.5-10.1)
[2023-05-17 11:11] LABS: BILIRUBIN,DIRECT 0.1 mg/dL (0.0-0.2); CREATININE 1.2 mg/dL (0.55-1.3)
[2023-05-17 11:13] LABS: BILIRUBIN,TOTAL 0.3 mg/dL (0.2-1); TOT PROT 7.9 g/dl (6.4-8.2)
[2023-05-17 11:14] LABS: N-TERMINAL BNP 15.4 pg/ml (5-125)
[2023-05-17 11:52] LABS: EPI CELLS >36 /uL (0-25.1); HYALINE CASTS 2 /uL (0-3.1); URINE APPEARANCE CLOUDY; URINE BACTERIA 456 /uL (0-1359); URINE BILIRUBIN NEGATIVE (NEGATIVE); URINE COLOR YELLOW; URINE GLUCOSE (UA) NEGATIVE (NEGATIVE); URINE KETONE NEGATIVE (NEGATIVE); URINE LEUK ESTERASE 3+ (NEGATIVE); URINE NITRITE NEGATIVE (NEGATIVE); URINE PROTEIN TRACE (NEGATIVE); URINE RBC 11 /uL (0-23.9); URINE UROBILINOGEN 0.2 mg/dL (0.2-1.0); URINE WBC 780 /uL (0-25.8)
[2023-05-17] MEDS: PEMBROLIZUMAB 200 MG in SODIUM CHLORIDE 100 ML IV ONE (12:50)
[2023-05-17] MEDS: PORTA CATH FLUSH 10 ML IVPUSH PRN (12:52)
[2023-05-17 13:09] VITALS: RESP 20
[2023-05-17 17:00] VITALS: BP 131/83; PULSE 72; TEMP 98.3
== END 2023-05-17 13:00 | disposition home or self-care (01) ==
LOC: JONCCHEMO 09:29 → J7W 09:30 → JONCCHEMO 13:00
PROVIDERS: ATTEND Internal Medicine Hematology & Oncology
DX: Z51.11 Encounter for antineoplastic chemotherapy (principal); C34.12 Malignant neoplasm of upper lobe, left bronchus or lung
CPT/HCPCS: 36415; 80048; 80076; 81003; 82150; 82533; 82550; 83690; 83880; 84439; 84443; 84484; 85025; 96413; J9271

== ENCOUNTER 2023-06-07 10:36 | Day surgery (SDC) | payer OTHER ==
[2023-06-07 11:25] LABS: BASO % 0.7 % (0-2.0); EOS % 5.3 % (0-4.5); HEMATOCRIT 39.1 % (32.4-45.2); HEMOGLOBIN 12.7 GM/dL (10.7-15.3); LYMPH % 29.9 % (8-40); MCH 27.9 pg (25.7-33.7); MCHC 32.6 g/dl (32.0-36.0); MEAN CELL VOLUME 85.4 fl (80-96); MEAN PLT VOLUME 7.7 fl (7.5-11.1); MONO % 11.3 % (3.8-10.2); NEUT % 52.8 % (42.8-82.8); PLATELET COUNT 264 10^3/uL (134-434); RBC 4.58 M/mm3 (3.60-5.2); RDW 14.6 % (11.6-15.6)
[2023-06-07 11:35] LABS: EPI CELLS >36 /uL (0-25.1); HYALINE CASTS 3 /uL (0-3.1); PH,URINE 5.5 (5.0-8.0); URINE APPEARANCE CLOUDY; URINE BACTERIA 582 /uL (0-1359); URINE BILIRUBIN NEGATIVE (NEGATIVE); URINE COLOR YELLOW; URINE GLUCOSE (UA) NEGATIVE (NEGATIVE); URINE KETONE NEGATIVE (NEGATIVE); URINE LEUK ESTERASE 3+ (NEGATIVE); URINE NITRITE NEGATIVE (NEGATIVE); URINE PROTEIN TRACE (NEGATIVE); URINE RBC 11 /uL (0-23.9); URINE UROBILINOGEN 0.2 mg/dL (0.2-1.0); URINE WBC 930 /uL (0-25.8)
[2023-06-07 11:47] LABS: CHLORIDE 108 mmol/L (98-107); POTASSIUM 4.3 mmol/L (3.5-5.1); SODIUM 139 mmol/L (136-145)
[2023-06-07 11:50] LABS: ALBUMIN 3.5 g/dl (3.4-5.0); ANION GAP 1 mmol/L (4-13); BLOOD UREA NITROGEN 20.1 mg/dL (7-18); CALCIUM 9.6 mg/dL (8.5-10.1); CO2 30 mmol/L (21-32); GLUCOSE,RANDOM 90 mg/dL (74-106)
[2023-06-07 11:51] LABS: AMYLASE 75 U/L (25-115)
[2023-06-07 11:52] LABS: BILIRUBIN,DIRECT 0.1 mg/dL (0.0-0.2)
[2023-06-07 11:53] LABS: CREATININE 1.1 mg/dL (0.55-1.3); SGOT/AST 17 U/L (15-37); SGPT/ALT 26 U/L (13-61)
[2023-06-07 11:54] LABS: BILIRUBIN,TOTAL 0.3 mg/dL (0.2-1); TOT PROT 7.6 g/dl (6.4-8.2)
[2023-06-07 11:55] LABS: ALK PHOS 129 U/L (45-117)
[2023-06-07 11:56] LABS: N-TERMINAL BNP 16.4 pg/ml (5-125)
[2023-06-07] MEDS: SODIUM CHLORIDE 250 ML IV ONE (11:57)
[2023-06-07] MEDS: PEMBROLIZUMAB 200 MG in SODIUM CHLORIDE 100 ML IV ONE (12:45)
[2023-06-07] MEDS: PORTA CATH FLUSH 10 ML IVPUSH PRN (13:25)
[2023-06-07 15:33] VITALS: RESP 20; TEMP 98.3
[2023-06-07 15:39] VITALS: BP 133/67; PULSE 73
== END 2023-06-07 13:55 | disposition home or self-care (01) ==
LOC: JONCCHEMO 10:36 → J7W 10:36 → JONCCHEMO 13:55
PROVIDERS: ATTEND Internal Medicine Hematology & Oncology
DX: Z51.11 Encounter for antineoplastic chemotherapy (principal); C34.12 Malignant neoplasm of upper lobe, left bronchus or lung
CPT/HCPCS: 36415; 80048; 80076; 81003; 82150; 82533; 82550; 83690; 83880; 84439; 84443; 84484; 85025; 96413; J9271

== ENCOUNTER 2023-06-28 10:45 | Day surgery (SDC) | payer OTHER ==
[2023-06-28 11:37] LABS: BASO % 0.6 % (0-2.0); EOS % 4.8 % (0-4.5); HEMATOCRIT 39.2 % (32.4-45.2); HEMOGLOBIN 12.8 GM/dL (10.7-15.3); MCH 27.8 pg (25.7-33.7); MCHC 32.7 g/dl (32.0-36.0); MEAN CELL VOLUME 85.1 fl (80-96); MEAN PLT VOLUME 7.9 fl (7.5-11.1); MONO % 9.9 % (3.8-10.2); NEUT % 55.7 % (42.8-82.8); PLATELET COUNT 235 10^3/uL (134-434); RBC 4.61 M/mm3 (3.60-5.2); RDW 14.7 % (11.6-15.6); WHITE BLOOD COUNT 7.9 K/mm3 (4.0-10.0)
[2023-06-28 11:42] LABS: EPI CELLS >36 /uL (0-25.1); HYALINE CASTS 1 /uL (0-3.1); URINE APPEARANCE TURBID; URINE BACTERIA 340 /uL (0-1359); URINE BILIRUBIN NEGATIVE (NEGATIVE); URINE COLOR YELLOW; URINE GLUCOSE (UA) NEGATIVE (NEGATIVE); URINE KETONE TRACE (NEGATIVE); URINE LEUK ESTERASE 3+ (NEGATIVE); URINE NITRITE NEGATIVE (NEGATIVE); URINE PROTEIN TRACE (NEGATIVE); URINE RBC 20 /uL (0-23.9); URINE WBC 1752 /uL (0-25.8)
[2023-06-28] MEDS: SODIUM CHLORIDE 250 ML IV ONE (11:47)
[2023-06-28 11:58] LABS: POTASSIUM 4.3 mmol/L (3.5-5.1)
[2023-06-28 12:01] LABS: ALBUMIN 3.7 g/dl (3.4-5.0); BLOOD UREA NITROGEN 16.3 mg/dL (7-18); CALCIUM 9.7 mg/dL (8.5-10.1)
[2023-06-28 12:04] LABS: BILIRUBIN,DIRECT 0.1 mg/dL (0.0-0.2); CREATININE 1.1 mg/dL (0.55-1.3)
[2023-06-28 12:05] LABS: BILIRUBIN,TOTAL 0.4 mg/dL (0.2-1)
[2023-06-28 12:06] LABS: TOT PROT 7.9 g/dl (6.4-8.2)
[2023-06-28 12:07] LABS: N-TERMINAL BNP 14.2 pg/ml (5-125)
[2023-06-28] MEDS: PEMBROLIZUMAB 200 MG in SODIUM CHLORIDE 100 ML IV ONE (12:28)
[2023-06-28] MEDS: PORTA CATH FLUSH 10 ML IVPUSH PRN (13:10)
[2023-06-28 14:28] LABS: YEAST NEGATIVE (NEGATIVE)
[2023-06-28 15:51] VITALS: RESP 20; TEMP 98.3
[2023-06-28 16:04] VITALS: BP 142/78; PULSE 67
== END 2023-06-28 13:55 | disposition home or self-care (01) ==
LOC: JONCCHEMO 10:45 → J7W 10:46 → JONCCHEMO 13:55
PROVIDERS: ATTEND Internal Medicine Hematology & Oncology
DX: Z51.11 Encounter for antineoplastic chemotherapy (principal); C34.12 Malignant neoplasm of upper lobe, left bronchus or lung
CPT/HCPCS: 36415; 80048; 80076; 81003; 82150; 82533; 82550; 83690; 83880; 84439; 84443; 84484; 85025; J9271

== ENCOUNTER 2023-07-19 10:40 | Day surgery (SDC) | payer OTHER ==
[2023-07-19 12:13] LABS: BASO % 0.6 % (0-2.0); EOS % 5.4 % (0-4.5); LYMPH % 29.7 % (8-40); MCH 27.6 pg (25.7-33.7); MCHC 32.4 g/dl (32.0-36.0); MEAN CELL VOLUME 85.1 fl (80-96); MEAN PLT VOLUME 7.9 fl (7.5-11.1); MONO % 8.9 % (3.8-10.2); NEUT % 55.4 % (42.8-82.8); PLATELET COUNT 251 10^3/uL (134-434); RBC 4.34 M/mm3 (3.60-5.2); RDW 15.1 % (11.6-15.6); WHITE BLOOD COUNT 6.9 K/mm3 (4.0-10.0)
[2023-07-19] MEDS: SODIUM CHLORIDE 250 ML IV ONE (12:28)
[2023-07-19 12:40] LABS: CHLORIDE 105 mmol/L (98-107); POTASSIUM 4.1 mmol/L (3.5-5.1); SODIUM 141 mmol/L (136-145)
[2023-07-19 12:43] LABS: CALCIUM 9.2 mg/dL (8.5-10.1)
[2023-07-19 12:44] LABS: ALBUMIN 3.4 g/dl (3.4-5.0); AMYLASE 86 U/L (25-115); ANION GAP 8 mmol/L (4-13); BLOOD UREA NITROGEN 20.4 mg/dL (7-18); CO2 28 mmol/L (21-32); GLUCOSE,RANDOM 101 mg/dL (74-106)
[2023-07-19 12:46] LABS: BILIRUBIN,DIRECT 0.1 mg/dL (0.0-0.2); CREATININE 1.2 mg/dL (0.55-1.3); SGOT/AST 14 U/L (15-37); SGPT/ALT 18 U/L (13-61)
[2023-07-19 12:48] LABS: BILIRUBIN,TOTAL 0.4 mg/dL (0.2-1); TOT PROT 7.5 g/dl (6.4-8.2)
[2023-07-19 12:49] LABS: ALK PHOS 129 U/L (45-117); N-TERMINAL BNP 12.9 pg/ml (5-125)
[2023-07-19 13:31] LABS: EPI CELLS 33 /uL (0-25.1); HYALINE CASTS 2 /uL (0-3.1); PH,URINE 5.5 (5.0-8.0); URINE APPEARANCE CLOUDY; URINE BACTERIA 241 /uL (0-1359); URINE BILIRUBIN NEGATIVE (NEGATIVE); URINE COLOR YELLOW; URINE GLUCOSE (UA) NEGATIVE (NEGATIVE); URINE KETONE NEGATIVE (NEGATIVE); URINE LEUK ESTERASE 3+ (NEGATIVE); URINE NITRITE NEGATIVE (NEGATIVE); URINE PROTEIN NEGATIVE (NEGATIVE); URINE RBC 10 /uL (0-23.9); URINE WBC 268 /uL (0-25.8)
[2023-07-19] MEDS: PEMBROLIZUMAB 200 MG in SODIUM CHLORIDE 100 ML IV ONE (13:46)
[2023-07-19] MEDS: PORTA CATH FLUSH 10 ML IVPUSH PRN (14:20)
[2023-07-19 14:33] VITALS: RESP 18; TEMP 98.1
[2023-07-19 14:42] VITALS: BP 146/73; PULSE 78
== END 2023-07-19 14:40 | disposition home or self-care (01) ==
LOC: J7W 10:40 → JONCCHEMO 10:40
PROVIDERS: ATTEND Internal Medicine Hematology & Oncology
DX: Z51.11 Encounter for antineoplastic chemotherapy (principal); C34.12 Malignant neoplasm of upper lobe, left bronchus or lung
CPT/HCPCS: 36415; 80048; 80076; 81003; 82150; 82533; 82550; 83690; 83880; 84439; 84443; 84484; 85025; 96413; J9271

== ENCOUNTER 2023-08-09 11:10 | Day surgery (SDC) | payer OTHER ==
[2023-08-09 11:57] LABS: EPI CELLS 30 /uL (0-25.1); HYALINE CASTS 1 /uL (0-3.1); PH,URINE 5.5 (5.0-8.0); URINE APPEARANCE CLOUDY; URINE BACTERIA 183 /uL (0-1359); URINE BILIRUBIN NEGATIVE (NEGATIVE); URINE COLOR YELLOW; URINE GLUCOSE (UA) NEGATIVE (NEGATIVE); URINE KETONE NEGATIVE (NEGATIVE); URINE LEUK ESTERASE 3+ (NEGATIVE); URINE NITRITE NEGATIVE (NEGATIVE); URINE PROTEIN NEGATIVE (NEGATIVE); URINE UROBILINOGEN 0.2 mg/dL (0.2-1.0); URINE WBC 265 /uL (0-25.8)
[2023-08-09 11:58] LABS: BASO % 0.7 % (0-2.0); EOS % 4.5 % (0-4.5); HEMATOCRIT 37.5 % (32.4-45.2); HEMOGLOBIN 12.5 GM/dL (10.7-15.3); LYMPH % 30.2 % (8-40); MCH 27.9 pg (25.7-33.7); MCHC 33.2 g/dl (32.0-36.0); MEAN CELL VOLUME 84.1 fl (80-96); MEAN PLT VOLUME 7.9 fl (7.5-11.1); MONO % 8.9 % (3.8-10.2); NEUT % 55.7 % (42.8-82.8); PLATELET COUNT 276 10^3/uL (134-434); RBC 4.46 M/mm3 (3.60-5.2); RDW 15.2 % (11.6-15.6); WHITE BLOOD COUNT 7.3 K/mm3 (4.0-10.0)
[2023-08-09 12:15] LABS: URINE RBC 25.1 /uL (0-23.9)
[2023-08-09] MEDS: SODIUM CHLORIDE 250 ML IV ONE (12:20)
[2023-08-09 12:22] LABS: CHLORIDE 106 mmol/L (98-107); POTASSIUM 4.3 mmol/L (3.5-5.1); SODIUM 141 mmol/L (136-145)
[2023-08-09 12:26] LABS: CALCIUM 9.3 mg/dL (8.5-10.1)
[2023-08-09 12:27] LABS: ALBUMIN 3.6 g/dl (3.4-5.0); BLOOD UREA NITROGEN 19.5 mg/dL (7-18)
[2023-08-09 12:28] LABS: AMYLASE 74 U/L (25-115); ANION GAP 8 mmol/L (4-13); CO2 27 mmol/L (21-32); GLUCOSE,RANDOM 95 mg/dL (74-106)
[2023-08-09 12:30] LABS: BILIRUBIN,DIRECT 0.1 mg/dL (0.0-0.2); CREATININE 1.2 mg/dL (0.55-1.3); SGOT/AST 16 U/L (15-37); SGPT/ALT 21 U/L (13-61)
[2023-08-09 12:31] LABS: BILIRUBIN,TOTAL 0.4 mg/dL (0.2-1); TOT PROT 7.9 g/dl (6.4-8.2)
[2023-08-09 12:32] LABS: ALK PHOS 133 U/L (45-117)
[2023-08-09 13:12] LABS: N-TERMINAL BNP 17.8 pg/ml (5-125)
[2023-08-09] MEDS: PEMBROLIZUMAB 200 MG in SODIUM CHLORIDE 100 ML IV ONE (13:25)
[2023-08-09] MEDS: PORTA CATH FLUSH 10 ML IVPUSH PRN (14:00)
[2023-08-09 15:17] VITALS: BP 123/78; PULSE 85; RESP 18; TEMP 98.1
[2023-08-10] MEDS ORDERED: PORTA CATH FLUSH 10 ML IVPUSH PRN (07:46)
== END 2023-08-09 15:18 | disposition home or self-care (01) ==
LOC: JONCCHEMO 11:10 → J7W 11:29 → JONCCHEMO 15:18
PROVIDERS: ATTEND Internal Medicine Hematology & Oncology
DX: Z51.11 Encounter for antineoplastic chemotherapy (principal); C34.12 Malignant neoplasm of upper lobe, left bronchus or lung; C78.01 Secondary malignant neoplasm of right lung; C78.02 Secondary malignant neoplasm of left lung
CPT/HCPCS: 36415; 80048; 80076; 81003; 82150; 82533; 82550; 82553; 83690; 83880; 84439; 84443; 84484; 85025; 96413; J9271

== ENCOUNTER 2023-09-06 12:20 | Day surgery (SDC) | payer OTHER ==
[2023-09-06 13:23] LABS: BASO % 0.7 % (0-2.0); EOS % 5.4 % (0-4.5); HEMATOCRIT 35.2 % (32.4-45.2); HEMOGLOBIN 11.3 GM/dL (10.7-15.3); LYMPH % 24.8 % (8-40); MCH 27.6 pg (25.7-33.7); MEAN CELL VOLUME 86.2 fl (80-96); MEAN PLT VOLUME 7.6 fl (7.5-11.1); MONO % 9.5 % (3.8-10.2); NEUT % 59.6 % (42.8-82.8); PLATELET COUNT 288 10^3/uL (134-434); RBC 4.09 M/mm3 (3.60-5.2); RDW 15.5 % (11.6-15.6); WHITE BLOOD COUNT 7.7 K/mm3 (4.0-10.0)
[2023-09-06 13:27] LABS: EPI CELLS >36 /uL (0-25.1); HYALINE CASTS 1 /uL (0-3.1); PH,URINE 5.5 (5.0-8.0); URINE APPEARANCE CLOUDY; URINE BACTERIA 495 /uL (0-1359); URINE BILIRUBIN NEGATIVE (NEGATIVE); URINE COLOR YELLOW; URINE GLUCOSE (UA) NEGATIVE (NEGATIVE); URINE KETONE NEGATIVE (NEGATIVE); URINE LEUK ESTERASE 3+ (NEGATIVE); URINE NITRITE NEGATIVE (NEGATIVE); URINE PROTEIN TRACE (NEGATIVE); URINE RBC 18 /uL (0-23.9); URINE UROBILINOGEN 0.2 mg/dL (0.2-1.0); URINE WBC 1262 /uL (0-25.8)
[2023-09-06 13:42] LABS: CHLORIDE 111 mmol/L (98-107); POTASSIUM 4.6 mmol/L (3.5-5.1); SODIUM 143 mmol/L (136-145)
[2023-09-06 13:44] LABS: ANION GAP 6 mmol/L (4-13); CO2 26 mmol/L (21-32)
[2023-09-06 13:45] LABS: ALBUMIN 3.3 g/dl (3.4-5.0); AMYLASE 80 U/L (25-115); BLOOD UREA NITROGEN 15.5 mg/dL (7-18)
[2023-09-06 13:47] LABS: BILIRUBIN,DIRECT 0.1 mg/dL (0.0-0.2); GLUCOSE,RANDOM 85 mg/dL (74-106); SGPT/ALT 16 U/L (13-61)
[2023-09-06 13:49] LABS: BILIRUBIN,TOTAL 0.3 mg/dL (0.2-1); TOT PROT 7.3 g/dl (6.4-8.2)
[2023-09-06 13:50] LABS: ALK PHOS 120 U/L (45-117); N-TERMINAL BNP 49.3 pg/ml (5-125)
[2023-09-06 13:56] LABS: SGOT/AST 10 U/L (15-37)
[2023-09-06] MEDS: SODIUM CHLORIDE 250 ML IV ONE (14:35)
[2023-09-06] MEDS: PEMBROLIZUMAB 200 MG in SODIUM CHLORIDE 100 ML IV ONE (15:16)
[2023-09-06] MEDS: PORTA CATH FLUSH 10 ML IVPUSH PRN (15:53)
[2023-09-06 15:56] VITALS: BP 159/89; PULSE 73; RESP 20
[2023-09-06 18:07] VITALS: TEMP 99.3
== END 2023-09-06 15:55 | disposition home or self-care (01) ==
LOC: J7W 12:20 → JONCCHEMO 12:20
PROVIDERS: ATTEND Internal Medicine Hematology & Oncology
DX: Z51.11 Encounter for antineoplastic chemotherapy (principal); C34.12 Malignant neoplasm of upper lobe, left bronchus or lung; C78.01 Secondary malignant neoplasm of right lung; C78.02 Secondary malignant neoplasm of left lung
CPT/HCPCS: 36415; 80048; 80076; 81003; 82150; 82533; 82550; 83690; 83880; 84439; 84443; 84484; 85025; 96413; J9271

== ENCOUNTER 2023-09-27 10:40 | Day surgery (SDC) | payer OTHER ==
[2023-09-27 12:05] LABS: BASO % 1.1 % (0-2.0); EOS % 4.2 % (0-4.5); HEMATOCRIT 37.1 % (32.4-45.2); HEMOGLOBIN 11.9 GM/dL (10.7-15.3); LYMPH % 29.8 % (8-40); MCH 27.4 pg (25.7-33.7); MEAN CELL VOLUME 85.6 fl (80-96); MONO % 8.7 % (3.8-10.2); NEUT % 56.2 % (42.8-82.8); PLATELET COUNT 254 10^3/uL (134-434); RBC 4.33 M/mm3 (3.60-5.2); RDW 15.2 % (11.6-15.6); WHITE BLOOD COUNT 6.9 K/mm3 (4.0-10.0)
[2023-09-27 12:09] LABS: EPI CELLS >36 /uL (0-25.1); HYALINE CASTS 4 /uL (0-3.1); PH,URINE 5.5 (5.0-8.0); URINE APPEARANCE TURBID; URINE BACTERIA 1028 /uL (0-1359); URINE BILIRUBIN NEGATIVE (NEGATIVE); URINE COLOR YELLOW; URINE GLUCOSE (UA) NEGATIVE (NEGATIVE); URINE KETONE NEGATIVE (NEGATIVE); URINE LEUK ESTERASE 3+ (NEGATIVE); URINE NITRITE NEGATIVE (NEGATIVE); URINE PROTEIN 1+ (NEGATIVE); URINE RBC 44 /uL (0-23.9); URINE UROBILINOGEN 0.2 mg/dL (0.2-1.0); URINE WBC 3346 /uL (0-25.8)
[2023-09-27 12:23] LABS: CHLORIDE 107 mmol/L (98-107); POTASSIUM 4.4 mmol/L (3.5-5.1); SODIUM 142 mmol/L (136-145)
[2023-09-27] MEDS: SODIUM CHLORIDE 250 ML IV ONE (12:23)
[2023-09-27 12:25] LABS: ANION GAP 9 mmol/L (4-13); BLOOD UREA NITROGEN 14.1 mg/dL (7-18); CALCIUM 9.2 mg/dL (8.5-10.1); CO2 26 mmol/L (21-32); GLUCOSE,RANDOM 112 mg/dL (74-106)
[2023-09-27 12:27] LABS: ALBUMIN 3.6 g/dl (3.4-5.0)
[2023-09-27 12:28] LABS: CREATININE 1.2 mg/dL (0.55-1.3)
[2023-09-27 12:28] LABS: AMYLASE 64 U/L (25-115)
[2023-09-27 12:29] LABS: BILIRUBIN,DIRECT 0.1 mg/dL (0.0-0.2)
[2023-09-27 12:30] LABS: SGOT/AST 16 U/L (15-37); SGPT/ALT 19 U/L (13-61)
[2023-09-27 12:32] LABS: BILIRUBIN,TOTAL 0.4 mg/dL (0.2-1); TOT PROT 7.3 g/dl (6.4-8.2)
[2023-09-27 12:33] LABS: ALK PHOS 128 U/L (45-117)
[2023-09-27 12:36] LABS: N-TERMINAL BNP 33.8 pg/ml (5-125)
[2023-09-27] MEDS: PEMBROLIZUMAB 200 MG in SODIUM CHLORIDE 100 ML IV ONE (13:29)
[2023-09-27] MEDS: PORTA CATH FLUSH 10 ML IVPUSH PRN (14:25)
[2023-09-27 18:47] VITALS: BP 126/70; PULSE 75; RESP 18; TEMP 98
== END 2023-09-27 14:30 | disposition home or self-care (01) ==
LOC: JONCCHEMO 10:40 → J7W 10:41 → JONCCHEMO 14:30
PROVIDERS: ATTEND Internal Medicine Hematology & Oncology
DX: Z51.11 Encounter for antineoplastic chemotherapy (principal); C34.12 Malignant neoplasm of upper lobe, left bronchus or lung; C78.01 Secondary malignant neoplasm of right lung
CPT/HCPCS: 36415; 80048; 80076; 81003; 82150; 82533; 82550; 82553; 83690; 83880; 84439; 84443; 84484; 85025; 96413; J9271

== ENCOUNTER 2023-10-18 10:48 | Day surgery (SDC) | payer OTHER ==
[2023-10-18 12:00] LABS: BASO % 0.5 % (0-2.0); EOS % 4.7 % (0-4.5); HEMATOCRIT 39.7 % (32.4-45.2); LYMPH % 31.3 % (8-40); MCH 27.5 pg (25.7-33.7); MCHC 32.6 g/dl (32.0-36.0); MEAN CELL VOLUME 84.2 fl (80-96); MEAN PLT VOLUME 7.9 fl (7.5-11.1); MONO % 8.1 % (3.8-10.2); NEUT % 55.4 % (42.8-82.8); PLATELET COUNT 285 10^3/uL (134-434); RBC 4.72 M/mm3 (3.60-5.2); RDW 15.2 % (11.6-15.6); WHITE BLOOD COUNT 6.5 K/mm3 (4.0-10.0)
[2023-10-18] MEDS: SODIUM CHLORIDE 250 ML IV ONE (12:12)
[2023-10-18 12:31] LABS: EPI CELLS >36 /uL (0-25.1); HYALINE CASTS 1 /uL (0-3.1); PH,URINE 5.5 (5.0-8.0); URINE APPEARANCE CLOUDY; URINE BACTERIA 560 /uL (0-1359); URINE BILIRUBIN NEGATIVE (NEGATIVE); URINE COLOR YELLOW; URINE GLUCOSE (UA) NEGATIVE (NEGATIVE); URINE KETONE NEGATIVE (NEGATIVE); URINE LEUK ESTERASE 3+ (NEGATIVE); URINE NITRITE NEGATIVE (NEGATIVE); URINE PROTEIN TRACE (NEGATIVE); URINE RBC 22 /uL (0-23.9); URINE UROBILINOGEN 0.2 mg/dL (0.2-1.0); URINE WBC 1317 /uL (0-25.8)
[2023-10-18 12:44] LABS: CHLORIDE 104 mmol/L (98-107); SODIUM 139 mmol/L (136-145)
[2023-10-18 12:47] LABS: CALCIUM 9.7 mg/dL (8.5-10.1)
[2023-10-18 12:48] LABS: ALBUMIN 3.8 g/dl (3.4-5.0); AMYLASE 77 U/L (25-115); ANION GAP 9 mmol/L (4-13); BLOOD UREA NITROGEN 16.2 mg/dL (7-18); CO2 26 mmol/L (21-32); GLUCOSE,RANDOM 101 mg/dL (74-106)
[2023-10-18 12:50] LABS: BILIRUBIN,DIRECT 0.1 mg/dL (0.0-0.2); CREATININE 1.2 mg/dL (0.55-1.3); SGPT/ALT 20 U/L (13-61)
[2023-10-18 12:51] LABS: SGOT/AST 14 U/L (15-37)
[2023-10-18 12:52] LABS: BILIRUBIN,TOTAL 0.4 mg/dL (0.2-1); TOT PROT 8.2 g/dl (6.4-8.2)
[2023-10-18 12:53] LABS: ALK PHOS 137 U/L (45-117)
[2023-10-18 12:54] LABS: N-TERMINAL BNP 21.7 pg/ml (5-125)
[2023-10-18 13:24] VITALS: RESP 20; TEMP 98.2
[2023-10-18] MEDS: PEMBROLIZUMAB 200 MG in SODIUM CHLORIDE 100 ML IV ONE (13:36)
[2023-10-18] MEDS: PORTA CATH FLUSH 10 ML IVPUSH PRN (14:10)
[2023-10-18 14:29] VITALS: BP 125/73; PULSE 83
== END 2023-10-18 14:35 | disposition home or self-care (01) ==
LOC: JONCCHEMO 10:48 → J7W 10:49 → JONCCHEMO 14:35
PROVIDERS: ATTEND Internal Medicine Hematology & Oncology
PROC: 3E04305 Introduction of Other Antineoplastic into Central Vein, Percutaneous Approach (ICD-10-PCS; principal; 2023-10-18)
PROC: 3E0437Z Introduction of Electrolytic and Water Balance Substance into Central Vein, Percutaneous Approach (ICD-10-PCS; 2023-10-18)
DX: Z51.11 Encounter for antineoplastic chemotherapy (principal); C34.12 Malignant neoplasm of upper lobe, left bronchus or lung; C78.01 Secondary malignant neoplasm of right lung
CPT/HCPCS: 36415; 80048; 80076; 81003; 82150; 82533; 82550; 83690; 83880; 84439; 84443; 84484; 85025; 96413; J9271

== ENCOUNTER 2023-11-08 10:43 | Day surgery (SDC) | payer OTHER ==
[2023-11-08] MEDS: SODIUM CHLORIDE 250 ML IV ONE (12:06)
[2023-11-08 12:21] LABS: BASO % 0.7 % (0-2.0); HEMATOCRIT 39.3 % (32.4-45.2); HEMOGLOBIN 12.4 GM/dL (10.7-15.3); LYMPH % 25.6 % (8-40); MCH 26.9 pg (25.7-33.7); MCHC 31.5 g/dl (32.0-36.0); MEAN CELL VOLUME 85.3 fl (80-96); MEAN PLT VOLUME 8.2 fl (7.5-11.1); MONO % 10.8 % (3.8-10.2); NEUT % 57.9 % (42.8-82.8); PLATELET COUNT 277 10^3/uL (134-434); RBC 4.61 M/mm3 (3.60-5.2); RDW 14.9 % (11.6-15.6); WHITE BLOOD COUNT 8.4 K/mm3 (4.0-10.0)
[2023-11-08 12:23] LABS: EPI CELLS >36 /uL (0-25.1); HYALINE CASTS 2 /uL (0-3.1); PH,URINE 5.5 (5.0-8.0); URINE APPEARANCE TURBID; URINE BACTERIA 1207 /uL (0-1359); URINE BILIRUBIN NEGATIVE (NEGATIVE); URINE COLOR YELLOW; URINE GLUCOSE (UA) NEGATIVE (NEGATIVE); URINE KETONE NEGATIVE (NEGATIVE); URINE LEUK ESTERASE 3+ (NEGATIVE); URINE NITRITE NEGATIVE (NEGATIVE); URINE PROTEIN TRACE (NEGATIVE); URINE RBC 55 /uL (0-23.9); URINE WBC 2836 /uL (0-25.8)
[2023-11-08 12:41] LABS: CHLORIDE 105 mmol/L (98-107); POTASSIUM 4.1 mmol/L (3.5-5.1); SODIUM 140 mmol/L (136-145)
[2023-11-08 12:44] LABS: ALBUMIN 3.7 g/dl (3.4-5.0); ANION GAP 8 mmol/L (4-13); CALCIUM 9.5 mg/dL (8.5-10.1); CO2 27 mmol/L (21-32); GLUCOSE,RANDOM 86 mg/dL (74-106)
[2023-11-08 12:45] LABS: AMYLASE 67 U/L (25-115); BLOOD UREA NITROGEN 16.8 mg/dL (7-18)
[2023-11-08 12:46] LABS: BILIRUBIN,DIRECT 0.1 mg/dL (0.0-0.2)
[2023-11-08 12:47] LABS: CREATININE 1.2 mg/dL (0.55-1.3); SGOT/AST 16 U/L (15-37); SGPT/ALT 20 U/L (13-61)
[2023-11-08 12:49] LABS: BILIRUBIN,TOTAL 0.4 mg/dL (0.2-1); TOT PROT 8.1 g/dl (6.4-8.2)
[2023-11-08 12:50] LABS: ALK PHOS 139 U/L (45-117); N-TERMINAL BNP 39.3 pg/ml (5-125)
[2023-11-08 12:54] LABS: YEAST NEGATIVE (NEGATIVE)
[2023-11-08] MEDS: PEMBROLIZUMAB 200 MG in SODIUM CHLORIDE 100 ML IV ONE (14:34)
[2023-11-08] MEDS: PORTA CATH FLUSH 10 ML IVPUSH PRN (15:10)
[2023-11-09 02:01] VITALS: BP 127/62; PULSE 75; RESP 20; TEMP 98.3
== END 2023-11-08 15:30 | disposition home or self-care (01) ==
LOC: J7W 10:43 → JONCCHEMO 10:43
PROVIDERS: ATTEND Internal Medicine Hematology & Oncology
DX: Z51.11 Encounter for antineoplastic chemotherapy (principal); C34.12 Malignant neoplasm of upper lobe, left bronchus or lung
CPT/HCPCS: 36415; 80048; 80076; 81003; 82150; 82533; 82550; 83690; 83880; 84439; 84443; 84484; 85025; 96413; J9271

== ENCOUNTER 2023-12-13 10:08 | Day surgery (SDC) | payer OTHER ==
[2023-12-13 10:33] VITALS: RESP 20; TEMP 98.4
[2023-12-13] MEDS: SODIUM CHLORIDE 250 ML IV ONE (10:46)
[2023-12-13 10:59] LABS: BASO % 0.8 % (0-2.0); EOS % 4.4 % (0-4.5); HEMATOCRIT 40.9 % (32.4-45.2); HEMOGLOBIN 12.9 GM/dL (10.7-15.3); LYMPH % 29.5 % (8-40); MCHC 31.5 g/dl (32.0-36.0); MEAN CELL VOLUME 85.8 fl (80-96); MONO % 10.3 % (3.8-10.2); RBC 4.76 M/mm3 (3.60-5.2); RDW 15.4 % (11.6-15.6); WHITE BLOOD COUNT 9.7 K/mm3 (4.0-10.0)
[2023-12-13 11:05] LABS: EPI CELLS >36 /uL (0-25.1); HYALINE CASTS 2 /uL (0-3.1); PH,URINE 5.5 (5.0-8.0); URINE APPEARANCE TURBID; URINE BACTERIA 874 /uL (0-1359); URINE BILIRUBIN NEGATIVE (NEGATIVE); URINE COLOR YELLOW; URINE GLUCOSE (UA) NEGATIVE (NEGATIVE); URINE KETONE TRACE (NEGATIVE); URINE LEUK ESTERASE 3+ (NEGATIVE); URINE NITRITE NEGATIVE (NEGATIVE); URINE PROTEIN 1+ (NEGATIVE); URINE RBC 48 /uL (0-23.9); URINE UROBILINOGEN 0.2 mg/dL (0.2-1.0); URINE WBC 3511 /uL (0-25.8)
[2023-12-13 11:38] LABS: CHLORIDE 108 mmol/L (98-107); POTASSIUM 4.4 mmol/L (3.5-5.1); SODIUM 142 mmol/L (136-145)
[2023-12-13 11:41] LABS: CALCIUM 9.6 mg/dL (8.5-10.1)
[2023-12-13 11:42] LABS: ALBUMIN 3.8 g/dl (3.4-5.0); AMYLASE 66 U/L (25-115); ANION GAP 7 mmol/L (4-13); BLOOD UREA NITROGEN 14.5 mg/dL (7-18); CO2 28 mmol/L (21-32); GLUCOSE,RANDOM 91 mg/dL (74-106)
[2023-12-13 11:44] LABS: BILIRUBIN,DIRECT 0.1 mg/dL (0.0-0.2); CREATININE 1.2 mg/dL (0.55-1.3); SGOT/AST 19 U/L (15-37); SGPT/ALT 20 U/L (13-61)
[2023-12-13 11:46] LABS: BILIRUBIN,TOTAL 0.4 mg/dL (0.2-1)
[2023-12-13 11:47] LABS: ALK PHOS 144 U/L (45-117)
[2023-12-13 12:24] LABS: YEAST NEGATIVE (NEGATIVE)
[2023-12-13 12:26] LABS: PLATELET ESTIMATE ADEQUATE
[2023-12-13 12:38] LABS: N-TERMINAL BNP 16.4 pg/ml (5-125)
[2023-12-13] MEDS: PEMBROLIZUMAB 200 MG in SODIUM CHLORIDE 100 ML IV ONE (13:34)
[2023-12-13] MEDS: PORTA CATH FLUSH 10 ML IVPUSH PRN (14:15)
[2023-12-13 14:37] VITALS: BP 141/74; PULSE 71
== END 2023-12-13 14:30 | disposition home or self-care (01) ==
LOC: JONCCHEMO 10:08 → J7W 10:09 → JONCCHEMO 14:30
PROVIDERS: ATTEND Internal Medicine Hematology & Oncology
DX: Z51.11 Encounter for antineoplastic chemotherapy (principal); C34.12 Malignant neoplasm of upper lobe, left bronchus or lung
CPT/HCPCS: 36415; 80048; 80076; 81003; 82150; 82533; 82550; 82553; 83690; 83880; 84439; 84443; 85025; 96413; J9271

== ENCOUNTER 2024-01-03 11:06 | Day surgery (SDC) | payer OTHER ==
[2024-01-03 11:30] LABS: BASO % 0.7 % (0-2.0); EOS % 4.7 % (0-4.5); HEMATOCRIT 40.3 % (32.4-45.2); HEMOGLOBIN 12.8 GM/dL (10.7-15.3); LYMPH % 29.2 % (8-40); MCH 26.8 pg (25.7-33.7); MCHC 31.6 g/dl (32.0-36.0); MEAN CELL VOLUME 84.8 fl (80-96); MEAN PLT VOLUME 7.9 fl (7.5-11.1); MONO % 9.8 % (3.8-10.2); NEUT % 55.6 % (42.8-82.8); PLATELET COUNT 296 10^3/uL (134-434); RBC 4.75 M/mm3 (3.60-5.2); RDW 15.5 % (11.6-15.6); WHITE BLOOD COUNT 7.7 K/mm3 (4.0-10.0)
[2024-01-03 11:45] LABS: EPI CELLS >36 /uL (0-25.1); HYALINE CASTS 3 /uL (0-3.1); PH,URINE 5.5 (5.0-8.0); URINE APPEARANCE TURBID; URINE BACTERIA 821 /uL (0-1359); URINE BILIRUBIN NEGATIVE (NEGATIVE); URINE COLOR YELLOW; URINE GLUCOSE (UA) NEGATIVE (NEGATIVE); URINE KETONE TRACE (NEGATIVE); URINE LEUK ESTERASE 3+ (NEGATIVE); URINE NITRITE NEGATIVE (NEGATIVE); URINE PROTEIN TRACE (NEGATIVE); URINE RBC 18 /uL (0-23.9); URINE UROBILINOGEN 0.2 mg/dL (0.2-1.0); URINE WBC 882 /uL (0-25.8)
[2024-01-03 11:52] LABS: CHLORIDE 105 mmol/L (98-107); POTASSIUM 4.1 mmol/L (3.5-5.1); SODIUM 142 mmol/L (136-145)
[2024-01-03 11:54] LABS: CALCIUM 9.7 mg/dL (8.5-10.1); GLUCOSE,RANDOM 109 mg/dL (74-106)
[2024-01-03 11:55] LABS: ALBUMIN 3.6 g/dl (3.4-5.0); AMYLASE 70 U/L (25-115); ANION GAP 11 mmol/L (4-13); BLOOD UREA NITROGEN 13.6 mg/dL (7-18); CO2 26 mmol/L (21-32)
[2024-01-03 11:57] LABS: BILIRUBIN,DIRECT 0.1 mg/dL (0.0-0.2); CREATININE 1.2 mg/dL (0.55-1.3); SGPT/ALT 23 U/L (13-61)
[2024-01-03 11:58] LABS: SGOT/AST 13 U/L (15-37)
[2024-01-03 11:59] LABS: BILIRUBIN,TOTAL 0.3 mg/dL (0.2-1)
[2024-01-03 12:00] LABS: ALK PHOS 137 U/L (45-117)
[2024-01-03 12:03] LABS: N-TERMINAL BNP 13.8 pg/ml (5-125)
[2024-01-03] MEDS: PEMBROLIZUMAB 200 MG in SODIUM CHLORIDE 100 ML IV ONE (13:36)
[2024-01-03] MEDS: SODIUM CHLORIDE 250 ML IV ONE (13:37)
[2024-01-03] MEDS: PORTA CATH FLUSH 10 ML IVPUSH PRN (14:10)
[2024-01-03 16:31] VITALS: TEMP 98
[2024-01-03 16:34] VITALS: BP 139/77; PULSE 77; RESP 18
== END 2024-01-03 14:30 | disposition home or self-care (01) ==
LOC: J7W 11:06 → JONCCHEMO 11:06
PROVIDERS: ATTEND Internal Medicine Hematology & Oncology
DX: Z51.11 Encounter for antineoplastic chemotherapy (principal); C34.12 Malignant neoplasm of upper lobe, left bronchus or lung
CPT/HCPCS: 36415; 80048; 80076; 81003; 82150; 82533; 82550; 82553; 83690; 83880; 84439; 84443; 84484; 85025; 96413; J9271

== ENCOUNTER 2024-01-24 11:09 | Day surgery (SDC) | payer OTHER ==
[2024-01-24] MEDS: SODIUM CHLORIDE 250 ML IV ONE (11:08)
[2024-01-24 11:34] LABS: BASO % 0.8 % (0-2.0); EOS % 4.1 % (0-4.5); HEMATOCRIT 39.6 % (32.4-45.2); HEMOGLOBIN 12.7 GM/dL (10.7-15.3); LYMPH % 27.7 % (8-40); MCH 27.2 pg (25.7-33.7); MEAN CELL VOLUME 84.9 fl (80-96); MEAN PLT VOLUME 8.1 fl (7.5-11.1); MONO % 10.1 % (3.8-10.2); NEUT % 57.3 % (42.8-82.8); PLATELET COUNT 290 10^3/uL (134-434); RBC 4.66 M/mm3 (3.60-5.2); RDW 15.3 % (11.6-15.6); WHITE BLOOD COUNT 8.4 K/mm3 (4.0-10.0)
[2024-01-24 11:44] LABS: CHLORIDE 108 mmol/L (98-107); POTASSIUM 4.4 mmol/L (3.5-5.1); SODIUM 140 mmol/L (136-145)
[2024-01-24 11:47] LABS: ALBUMIN 3.7 g/dl (3.4-5.0); ANION GAP 6 mmol/L (4-13); BLOOD UREA NITROGEN 18.2 mg/dL (7-18); CALCIUM 9.7 mg/dL (8.5-10.1); CO2 26 mmol/L (21-32)
[2024-01-24 11:48] LABS: GLUCOSE,RANDOM 87 mg/dL (74-106)
[2024-01-24 11:49] LABS: BILIRUBIN,DIRECT 0.1 mg/dL (0.0-0.2); CREATININE 1.2 mg/dL (0.55-1.3); SGOT/AST 16 U/L (15-37); SGPT/ALT 23 U/L (13-61)
[2024-01-24 11:51] LABS: BILIRUBIN,TOTAL 0.4 mg/dL (0.2-1); TOT PROT 7.9 g/dl (6.4-8.2)
[2024-01-24 11:52] LABS: ALK PHOS 139 U/L (45-117); EPI CELLS >36 /uL (0-25.1); HYALINE CASTS 4 /uL (0-3.1); URINE APPEARANCE CLOUDY; URINE BACTERIA 321 /uL (0-1359); URINE BILIRUBIN NEGATIVE (NEGATIVE); URINE COLOR YELLOW; URINE GLUCOSE (UA) NEGATIVE (NEGATIVE); URINE KETONE TRACE (NEGATIVE); URINE LEUK ESTERASE 3+ (NEGATIVE); URINE NITRITE NEGATIVE (NEGATIVE); URINE PROTEIN TRACE (NEGATIVE); URINE RBC 16 /uL (0-23.9); URINE UROBILINOGEN 0.2 mg/dL (0.2-1.0); URINE WBC 632 /uL (0-25.8)
[2024-01-24] MEDS: PEMBROLIZUMAB 200 MG in SODIUM CHLORIDE 100 ML IV ONE (13:06)
[2024-01-24] MEDS: PORTA CATH FLUSH 10 ML IVPUSH PRN (13:45)
[2024-01-24 17:28] VITALS: TEMP 99.1
[2024-01-24 17:40] VITALS: BP 132/95; PULSE 80; RESP 20
== END 2024-01-24 13:45 | disposition home or self-care (01) ==
LOC: JONCCHEMO 11:09 → J7W 11:10 → JONCCHEMO 13:45
PROVIDERS: ATTEND Internal Medicine Hematology & Oncology
DX: Z51.11 Encounter for antineoplastic chemotherapy (principal); C34.12 Malignant neoplasm of upper lobe, left bronchus or lung
CPT/HCPCS: 36415; 80048; 80076; 81003; 82150; 82533; 82550; 83690; 83880; 84439; 84443; 84484; 85025; 96413; J9271

== ENCOUNTER 2024-02-14 10:52 | Day surgery (SDC) | payer OTHER ==
[2024-02-14 11:35] LABS: BASO % 0.7 % (0-2.0); EOS % 4.1 % (0-4.5); HEMATOCRIT 41.6 % (32.4-45.2); HEMOGLOBIN 12.9 GM/dL (10.7-15.3); LYMPH % 31.7 % (8-40); MCH 26.5 pg (25.7-33.7); MEAN CELL VOLUME 85.5 fl (80-96); MONO % 9.8 % (3.8-10.2); NEUT % 53.7 % (42.8-82.8); PLATELET COUNT 287 10^3/uL (134-434); RBC 4.86 M/mm3 (3.60-5.2); RDW 15.5 % (11.6-15.6); WHITE BLOOD COUNT 7.5 K/mm3 (4.0-10.0)
[2024-02-14 11:41] LABS: EPI CELLS >36 /uL (0-25.1); HYALINE CASTS 0 /uL (0-3.1); URINE APPEARANCE CLOUDY; URINE BACTERIA 483 /uL (0-1359); URINE BILIRUBIN NEGATIVE (NEGATIVE); URINE COLOR YELLOW; URINE GLUCOSE (UA) NEGATIVE (NEGATIVE); URINE KETONE NEGATIVE (NEGATIVE); URINE LEUK ESTERASE 3+ (NEGATIVE); URINE NITRITE NEGATIVE (NEGATIVE); URINE PROTEIN NEGATIVE (NEGATIVE); URINE RBC 11 /uL (0-23.9); URINE UROBILINOGEN 0.2 mg/dL (0.2-1.0); URINE WBC 667 /uL (0-25.8)
[2024-02-14 11:51] LABS: CHLORIDE 106 mmol/L (98-107); POTASSIUM 4.1 mmol/L (3.5-5.1); SODIUM 139 mmol/L (136-145)
[2024-02-14 11:53] LABS: CALCIUM 9.7 mg/dL (8.5-10.1)
[2024-02-14 11:54] LABS: ALBUMIN 3.7 g/dl (3.4-5.0); ANION GAP 7 mmol/L (4-13); CO2 26 mmol/L (21-32); GLUCOSE,RANDOM 110 mg/dL (74-106)
[2024-02-14 11:55] LABS: AMYLASE 72 U/L (25-115)
[2024-02-14 11:56] LABS: BILIRUBIN,DIRECT 0.1 mg/dL (0.0-0.2); SGOT/AST 19 U/L (15-37); SGPT/ALT 19 U/L (13-61)
[2024-02-14 11:57] LABS: CREATININE 1.2 mg/dL (0.55-1.3)
[2024-02-14 11:58] LABS: BILIRUBIN,TOTAL 0.3 mg/dL (0.2-1); TOT PROT 7.8 g/dl (6.4-8.2)
[2024-02-14 11:59] LABS: ALK PHOS 135 U/L (45-117); N-TERMINAL BNP 15.2 pg/ml (5-125)
[2024-02-14] MEDS: SODIUM CHLORIDE 250 ML IV ONE (12:02)
[2024-02-14] MEDS: PEMBROLIZUMAB 200 MG in SODIUM CHLORIDE 100 ML IV ONE (12:49)
[2024-02-14] MEDS: PORTA CATH FLUSH 10 ML IVPUSH PRN (13:25)
[2024-02-14 16:17] VITALS: TEMP 97.7
[2024-02-14 16:22] VITALS: BP 113/59; PULSE 79; RESP 18
== END 2024-02-14 13:30 | disposition home or self-care (01) ==
LOC: JONCCHEMO 10:52 → J7W 10:53 → JONCCHEMO 13:30
PROVIDERS: ATTEND Internal Medicine Hematology & Oncology
DX: Z51.11 Encounter for antineoplastic chemotherapy (principal); C34.12 Malignant neoplasm of upper lobe, left bronchus or lung
CPT/HCPCS: 36415; 80048; 80076; 81003; 82150; 82533; 82550; 82553; 83690; 83880; 84439; 84443; 84484; 85025; 96413; J9271

== ENCOUNTER 2024-03-06 11:03 | Day surgery (SDC) | payer OTHER ==
[2024-03-06] MEDS: SODIUM CHLORIDE 250 ML IV ONE (11:44)
[2024-03-06 11:56] LABS: BASO % 0.7 % (0-2.0); HEMATOCRIT 39.3 % (32.4-45.2); HEMOGLOBIN 12.7 GM/dL (10.7-15.3); LYMPH % 26.9 % (8-40); MCH 27.3 pg (25.7-33.7); MCHC 32.3 g/dl (32.0-36.0); MEAN CELL VOLUME 84.5 fl (80-96); MONO % 10.9 % (3.8-10.2); NEUT % 55.5 % (42.8-82.8); PLATELET COUNT 293 10^3/uL (134-434); RBC 4.65 M/mm3 (3.60-5.2); RDW 15.1 % (11.6-15.6); WHITE BLOOD COUNT 7.1 K/mm3 (4.0-10.0)
[2024-03-06 12:10] LABS: EPI CELLS >36 /uL (0-25.1); HYALINE CASTS 1 /uL (0-3.1); PH,URINE 5.5 (5.0-8.0); URINE APPEARANCE CLOUDY; URINE BACTERIA 1258 /uL (0-1359); URINE BILIRUBIN NEGATIVE (NEGATIVE); URINE COLOR YELLOW; URINE GLUCOSE (UA) NEGATIVE (NEGATIVE); URINE KETONE TRACE (NEGATIVE); URINE LEUK ESTERASE 3+ (NEGATIVE); URINE NITRITE NEGATIVE (NEGATIVE); URINE PROTEIN 1+ (NEGATIVE); URINE RBC 13 /uL (0-23.9); URINE UROBILINOGEN 0.2 mg/dL (0.2-1.0); URINE WBC 1190 /uL (0-25.8)
[2024-03-06 12:14] LABS: CHLORIDE 107 mmol/L (98-107); POTASSIUM 4.1 mmol/L (3.5-5.1); SODIUM 142 mmol/L (136-145)
[2024-03-06 12:16] LABS: CALCIUM 9.7 mg/dL (8.5-10.1)
[2024-03-06 12:17] LABS: ALBUMIN 3.7 g/dl (3.4-5.0); ANION GAP 8 mmol/L (4-13); BLOOD UREA NITROGEN 17.7 mg/dL (7-18); CO2 26 mmol/L (21-32); GLUCOSE,RANDOM 85 mg/dL (74-106)
[2024-03-06 12:19] LABS: SGPT/ALT 21 U/L (13-61)
[2024-03-06 12:20] LABS: BILIRUBIN,DIRECT 0.1 mg/dL (0.0-0.2); CREATININE 1.2 mg/dL (0.55-1.3); SGOT/AST 17 U/L (15-37)
[2024-03-06 12:21] LABS: BILIRUBIN,TOTAL 0.3 mg/dL (0.2-1); TOT PROT 7.9 g/dl (6.4-8.2)
[2024-03-06 12:22] LABS: ALK PHOS 134 U/L (45-117)
[2024-03-06 12:23] LABS: AMYLASE 74 U/L (25-115)
[2024-03-06] MEDS: PEMBROLIZUMAB 200 MG in SODIUM CHLORIDE 100 ML IVPB ONE (13:06)
[2024-03-06] MEDS: PORTA CATH FLUSH 10 ML IVPUSH PRN (13:40)
[2024-03-06 16:11] VITALS: BP 134/72; PULSE 90; RESP 20; TEMP 98.4
== END 2024-03-06 14:00 | disposition home or self-care (01) ==
LOC: JONCCHEMO 11:03 → J7W 11:05 → JONCCHEMO 14:00
PROVIDERS: ATTEND Internal Medicine Hematology & Oncology
DX: Z51.11 Encounter for antineoplastic chemotherapy (principal); C34.12 Malignant neoplasm of upper lobe, left bronchus or lung
CPT/HCPCS: 36415; 80048; 80076; 81003; 82150; 82533; 82550; 82553; 83690; 83880; 84439; 84443; 84484; 85025; J9271

== ENCOUNTER 2024-03-27 10:36 | Day surgery (SDC) | payer OTHER ==
[2024-03-27 11:53] LABS: EPI CELLS >36 /uL (0-25.1); HYALINE CASTS 1 /uL (0-3.1); URINE APPEARANCE CLOUDY; URINE BACTERIA 695 /uL (0-1359); URINE BILIRUBIN NEGATIVE (NEGATIVE); URINE COLOR YELLOW; URINE GLUCOSE (UA) NEGATIVE (NEGATIVE); URINE KETONE NEGATIVE (NEGATIVE); URINE LEUK ESTERASE 3+ (NEGATIVE); URINE NITRITE NEGATIVE (NEGATIVE); URINE PROTEIN TRACE (NEGATIVE); URINE RBC 14 /uL (0-23.9); URINE UROBILINOGEN 0.2 mg/dL (0.2-1.0); URINE WBC 811 /uL (0-25.8)
[2024-03-27 12:04] LABS: BASO % 0.4 % (0-2.0); EOS % 4.3 % (0-4.5); HEMATOCRIT 39.5 % (32.4-45.2); HEMOGLOBIN 12.9 GM/dL (10.7-15.3); LYMPH % 30.9 % (8-40); MCH 27.5 pg (25.7-33.7); MCHC 32.6 g/dl (32.0-36.0); MEAN CELL VOLUME 84.3 fl (80-96); MEAN PLT VOLUME 8.1 fl (7.5-11.1); MONO % 9.1 % (3.8-10.2); NEUT % 55.3 % (42.8-82.8); PLATELET COUNT 312 10^3/uL (134-434); RBC 4.69 M/mm3 (3.60-5.2); RDW 14.9 % (11.6-15.6); WHITE BLOOD COUNT 7.7 K/mm3 (4.0-10.0)
[2024-03-27 12:23] LABS: CHLORIDE 104 mmol/L (98-107); POTASSIUM 4.1 mmol/L (3.5-5.1); SODIUM 143 mmol/L (136-145)
[2024-03-27 12:25] LABS: N-TERMINAL BNP 17.6 pg/ml (5-125)
[2024-03-27 12:26] LABS: ALBUMIN 3.8 g/dl (3.4-5.0); ANION GAP 11 mmol/L (4-13); BLOOD UREA NITROGEN 17.7 mg/dL (7-18); CALCIUM 10.2 mg/dL (8.5-10.1); CO2 28 mmol/L (21-32); GLUCOSE,RANDOM 88 mg/dL (74-106)
[2024-03-27 12:30] LABS: BILIRUBIN,DIRECT 0.1 mg/dL (0.0-0.2); CREATININE 1.2 mg/dL (0.55-1.3); SGPT/ALT 22 U/L (13-61)
[2024-03-27 12:32] LABS: BILIRUBIN,TOTAL 0.3 mg/dL (0.2-1); TOT PROT 8.1 g/dl (6.4-8.2)
[2024-03-27 12:33] LABS: ALK PHOS 138 U/L (45-117)
[2024-03-27 12:36] LABS: SGOT/AST 15 U/L (15-37)
[2024-03-27] MEDS: SODIUM CHLORIDE 250 ML IV ONE (13:04)
[2024-03-27] MEDS: PEMBROLIZUMAB 200 MG in SODIUM CHLORIDE 100 ML IVPB ONE (13:26)
[2024-03-27] MEDS: PORTA CATH FLUSH 10 ML IVPUSH PRN (14:10)
[2024-03-27 15:06] VITALS: RESP 20; TEMP 97.8
[2024-03-27 15:20] VITALS: BP 116/73; PULSE 89
== END 2024-03-27 14:45 | disposition home or self-care (01) ==
LOC: JONCCHEMO 10:36 → J7W 10:39 → JONCCHEMO 14:45
PROVIDERS: ATTEND Internal Medicine Hematology & Oncology
DX: Z51.11 Encounter for antineoplastic chemotherapy (principal); C34.12 Malignant neoplasm of upper lobe, left bronchus or lung
CPT/HCPCS: 36415; 80048; 80076; 81003; 82150; 82533; 82550; 82553; 83690; 83880; 84439; 84443; 84484; 85025; 96413; J9271

== ENCOUNTER 2024-04-17 11:56 | Day surgery (SDC) | payer OTHER ==
[2024-04-17] MEDS: SODIUM CHLORIDE 250 ML IV ONE (12:31)
[2024-04-17 12:51] LABS: HEMOGLOBIN 11.7 GM/dL (10.7-15.3); LYMPH % 27.2 % (8-40); MCH 26.7 pg (25.7-33.7); MCHC 31.6 g/dl (32.0-36.0); MEAN CELL VOLUME 84.4 fl (80-96); MEAN PLT VOLUME 7.8 fl (7.5-11.1); MONO % 9.7 % (3.8-10.2); PLATELET COUNT 304 10^3/uL (134-434); RBC 4.38 M/mm3 (3.60-5.2); RDW 14.6 % (11.6-15.6); WHITE BLOOD COUNT 7.3 K/mm3 (4.0-10.0)
[2024-04-17 12:52] LABS: BASO % 0.7 % (0-2.0); EOS % 4.4 % (0-4.5)
[2024-04-17 13:23] LABS: EPI CELLS >36 /uL (0-25.1); HYALINE CASTS 12 /uL (0-3.1); URINE APPEARANCE CLOUDY; URINE BACTERIA 3770 /uL (0-1359); URINE BILIRUBIN NEGATIVE (NEGATIVE); URINE COLOR YELLOW; URINE GLUCOSE (UA) NEGATIVE (NEGATIVE); URINE KETONE NEGATIVE (NEGATIVE); URINE LEUK ESTERASE 3+ (NEGATIVE); URINE NITRITE NEGATIVE (NEGATIVE); URINE PROTEIN 1+ (NEGATIVE); URINE WBC 26332 /uL (0-25.8)
[2024-04-17 13:41] LABS: CHLORIDE 104 mmol/L (98-107); POTASSIUM 3.7 mmol/L (3.5-5.1); SODIUM 143 mmol/L (136-145)
[2024-04-17 13:44] VITALS: RESP 20; TEMP 98
[2024-04-17 13:44] LABS: ALBUMIN 3.4 g/dl (3.4-5.0); ANION GAP 10 mmol/L (4-13); BLOOD UREA NITROGEN 18.3 mg/dL (7-18); CALCIUM 9.5 mg/dL (8.5-10.1); CO2 28 mmol/L (21-32); GLUCOSE,RANDOM 92 mg/dL (74-106)
[2024-04-17 13:45] LABS: AMYLASE 64 U/L (25-115)
[2024-04-17 13:46] LABS: BILIRUBIN,DIRECT 0.1 mg/dL (0.0-0.2)
[2024-04-17 13:47] LABS: CREATININE 1.1 mg/dL (0.55-1.3); SGOT/AST 16 U/L (15-37); SGPT/ALT 20 U/L (13-61)
[2024-04-17 13:48] LABS: BILIRUBIN,TOTAL 0.3 mg/dL (0.2-1)
[2024-04-17 13:50] LABS: N-TERMINAL BNP 30.8 pg/ml (5-125)
[2024-04-17 13:52] LABS: TOT PROT 7.3 g/dl (6.4-8.2)
[2024-04-17 14:13] LABS: ALK PHOS 129 U/L (45-117)
[2024-04-17] MEDS: PEMBROLIZUMAB 200 MG in SODIUM CHLORIDE 100 ML IVPB ONE (14:14)
[2024-04-17 14:39] LABS: URINE RBC 506 /uL (0-23.9); YEAST NONE SEEN (NEGATIVE)
[2024-04-17 14:40] LABS: URINE TRICHOMONAS PRESENT
[2024-04-17 14:55] VITALS: BP 136/76; PULSE 81
[2024-04-17] MEDS: PORTA CATH FLUSH 10 ML IVPUSH PRN (14:57)
== END 2024-04-17 15:01 | disposition home or self-care (01) ==
LOC: J7W 11:56 → JONCCHEMO 11:56
PROVIDERS: ATTEND Internal Medicine Hematology & Oncology
DX: Z51.11 Encounter for antineoplastic chemotherapy (principal); C34.12 Malignant neoplasm of upper lobe, left bronchus or lung
CPT/HCPCS: 36415; 80048; 80076; 81003; 81015; 82150; 82533; 82550; 82553; 83690; 83880; 84439; 84443; 84484; 85025; 96413; J9271

== ENCOUNTER 2024-05-08 11:36 | Day surgery (SDC) | payer OTHER ==
[2024-05-08 12:03] LABS: ABSOLUTE IMMATURE GRANULOCYTES 0.02 x10^3/uL (0.0-0.031); BASOPHILS # 0.05 x10^3/uL (0.01-0.08); EOSINOPHIL % 3.8 % (0.7-5.8); EOSINOPHILS # 0.26 x10^3/uL (0.04-0.36); HEMATOCRIT 41.5 % (34.1-44.9); HEMOGLOBIN 12.8 g/dL (11.2-15.7); MCHC 30.8 g/dl (32.2-35.5); MEAN CELL VOLUME 85.7 fl (79.4-94.8); MEAN PLT VOLUME 9.7 fl (9.4-12.3); MONOCYTE # 0.66 x10^3/uL (0.24-0.86); MONOCYTE % 9.6 % (4.7-12.5); PLATELET COUNT 286 x10^3/uL (182-369); RDW 14.6 % (12.4-16.4)
[2024-05-08 12:11] LABS: EPI CELLS 35 /uL (0-25.1); HYALINE CASTS 1 /uL (0-3.1); PH,URINE 5.5 (5.0-8.0); URINE APPEARANCE CLEAR; URINE BACTERIA 71 /uL (0-1359); URINE BILIRUBIN NEGATIVE (NEGATIVE); URINE COLOR YELLOW; URINE GLUCOSE (UA) NEGATIVE (NEGATIVE); URINE KETONE NEGATIVE (NEGATIVE); URINE LEUK ESTERASE 2+ (NEGATIVE); URINE NITRITE NEGATIVE (NEGATIVE); URINE PROTEIN NEGATIVE (NEGATIVE); URINE RBC 35 /uL (0-23.9); URINE UROBILINOGEN 0.2 mg/dL (0.2-1.0); URINE WBC 99 /uL (0-25.8)
[2024-05-08 12:25] LABS: CHLORIDE 105 mmol/L (98-107); POTASSIUM 4.1 mmol/L (3.5-5.1); SODIUM 142 mmol/L (136-145)
[2024-05-08 12:27] LABS: ALBUMIN 3.7 g/dl (3.4-5.0); AMYLASE 68 U/L (25-115); CALCIUM 9.7 mg/dL (8.5-10.1)
[2024-05-08 12:28] LABS: ANION GAP 10 mmol/L (4-13); BLOOD UREA NITROGEN 16.4 mg/dL (7-18); CO2 28 mmol/L (21-32); GLUCOSE,RANDOM 99 mg/dL (74-106)
[2024-05-08 12:30] LABS: BILIRUBIN,DIRECT 0.1 mg/dL (0.0-0.2)
[2024-05-08 12:31] LABS: CREATININE 1.2 mg/dL (0.55-1.3); SGOT/AST 18 U/L (15-37); SGPT/ALT 20 U/L (13-61)
[2024-05-08 12:32] LABS: BILIRUBIN,TOTAL 0.4 mg/dL (0.2-1); TOT PROT 7.9 g/dl (6.4-8.2)
[2024-05-08 12:33] LABS: ALK PHOS 145 U/L (45-117)
[2024-05-08] MEDS: SODIUM CHLORIDE 250 ML IV ONE (12:36)
[2024-05-08 12:47] LABS: N-TERMINAL BNP 15.9 pg/ml (5-125)
[2024-05-08] MEDS: PEMBROLIZUMAB 200 MG in SODIUM CHLORIDE 100 ML IV ONE (13:55)
[2024-05-08 18:11] VITALS: RESP 20; TEMP 98.1
[2024-05-08 18:14] VITALS: BP 124/65; PULSE 85
[2024-05-08] MEDS ORDERED: PORTA CATH FLUSH 10 ML IVPUSH PRN (18:14)
== END 2024-05-08 14:40 | disposition home or self-care (01) ==
LOC: JONCCHEMO 11:36 → J7W 11:40 → JONCCHEMO 14:40
PROVIDERS: ATTEND Internal Medicine Hematology & Oncology
DX: Z51.12 Encounter for antineoplastic immunotherapy (principal); Z51.11 Encounter for antineoplastic chemotherapy; C34.12 Malignant neoplasm of upper lobe, left bronchus or lung
CPT/HCPCS: 36415; 80048; 80076; 81003; 82150; 82533; 82550; 82553; 83690; 83880; 84439; 84443; 84484; 85025; 96413; J9271

== ENCOUNTER 2024-08-07 10:39 | Day surgery (SDC) | payer OTHER ==
[2024-08-07] MEDS: SODIUM CHLORIDE 250 ML IV ONE (11:23)
[2024-08-07 11:54] LABS: ABSOLUTE IMMATURE GRANULOCYTES 0.04 x10^3/uL (0.0-0.031); BASOPHILS # 0.04 x10^3/uL (0.01-0.08); EOSINOPHIL % 4.3 % (0.7-5.8); EOSINOPHILS # 0.36 x10^3/uL (0.04-0.36); MCHC 30.4 g/dl (32.2-35.5); MEAN CELL VOLUME 83.4 fl (79.4-94.8); MEAN PLT VOLUME 10.2 fl (9.4-12.3); MONOCYTE # 1.00 x10^3/uL (0.24-0.86); MONOCYTE % 11.9 % (4.7-12.5); RDW 15.3 % (12.4-16.4)
[2024-08-07 12:00] LABS: EPI CELLS >36 /uL (0-25.1); HYALINE CASTS 0 /uL (0-3.1); URINE APPEARANCE TURBID; URINE BACTERIA 1246 /uL (0-1359); URINE BILIRUBIN NEGATIVE (NEGATIVE); URINE COLOR YELLOW; URINE GLUCOSE (UA) NEGATIVE (NEGATIVE); URINE KETONE TRACE (NEGATIVE); URINE LEUK ESTERASE 3+ (NEGATIVE); URINE NITRITE NEGATIVE (NEGATIVE); URINE PROTEIN 1+ (NEGATIVE); URINE RBC 34 /uL (0-23.9); URINE UROBILINOGEN 1.0 mg/dL (0.2-1.0); URINE WBC 2043 /uL (0-25.8)
[2024-08-07 12:25] LABS: CO2 26 mmol/L (21-32); GLUCOSE,RANDOM 97 mg/dL (74-106)
[2024-08-07 12:27] LABS: CREATININE 1.0 mg/dL (0.55-1.3)
[2024-08-07 12:28] LABS: SGOT/AST 20 U/L (15-37); SGPT/ALT 22 U/L (13-61)
[2024-08-07 12:29] LABS: TOT PROT 7.6 g/dl (6.4-8.2)
[2024-08-07 12:30] LABS: ALK PHOS 143 U/L (45-117)
[2024-08-07 12:31] LABS: N-TERMINAL BNP 36.2 pg/ml (5-125)
[2024-08-07] MEDS: PEMBROLIZUMAB 200 MG in SODIUM CHLORIDE 100 ML IV ONE (12:58)
[2024-08-07 18:02] VITALS: BP 126/74; PULSE 86; RESP 20; TEMP 98.2
[2024-08-07] MEDS ORDERED: PORTA CATH FLUSH 10 ML IVPUSH PRN (18:02)
== END 2024-08-07 13:45 | disposition home or self-care (01) ==
LOC: JONCCHEMO 10:39
PROVIDERS: ATTEND Internal Medicine Hematology & Oncology
DX: Z51.11 Encounter for antineoplastic chemotherapy (principal); C34.12 Malignant neoplasm of upper lobe, left bronchus or lung
CPT/HCPCS: 36415; 80048; 80076; 81003; 82150; 82533; 82550; 82553; 83690; 83880; 84439; 84443; 84484; 85025; 96413; J9271